=== PATIENT | female | born 1965 | race Caucasian/White ===

== ENCOUNTER 2017-04-03 12:00 | Emergency (ER) | payer MEDICAID, BC ==
[2017-04-03] MEDS ORDERED: 0.9 % SODIUM CHLORIDE 1,000 ML BAG IV ONE ×2 (13:08→14:44)
[2017-04-03] MEDS ORDERED: ONDANSETRON HCL IV 4 MG/2 ML VIAL IV ONE (13:08)
[2017-04-03] MEDS ORDERED: HYDROMORPHONE HCL 1 MG/ML CPJ IVP ONE ×2 (13:10→13:48)
--- NOTE | 2017-04-03 13:14 | Emergency Department Record ---
History of Present Illness - General Chief Complaint: Abdominal Pain Stated Complaint: ABDOMINAL PAIN Time Seen by Provider: 04/03/17 13:03 Source: Patient Mode of Arrival: Ambulatory Limitations: No limitations - History of Present Illness Initial Comments: The patient is here due to the acute onset of diffuse AP increasing mainly to the LLQ. The pain is also associated with nausea and dry heaves. The patient denies any diarrhea, fever, chills, CP, SOB, or ISAEL. She has had a similar episode of pain a year ago when she needed to be admitted to the hospital and her entire workup was neg including CT scans and an EGD. She states no dx was given and this is the first similar episode she has had since. The patient denies any hx of any abdominal surgeries. The patient has a long hx of similar issues and problems and has been to the hospital multiple times for it. Her workups have always been neg. MD Complaint: Abdominal pain Onset/Timin -: Hour(s) Location: LLQ Radiation: None Quality: Cramping, Stabbing Consistency: Constant Improves With: Nothing Worsens With: Nothing Associated Symptoms: Nausea, Vomiting - Related Data Home Medications Medication Instructions Recorded Confirmed Last Taken Chlordiazepoxide/Clidinium Br 1 each PO DAILY 08/03/15 04/03/17 04/02/17 [Librax Capsule] Fluoxetine HCl 20 mg PO DAILY 08/03/15 04/03/17 04/02/17 Pravastatin Sodium 40 mg PO QHS 08/03/15 04/03/17 04/02/17 Aspirin 81 mg PO QD tab.chew 08/28/15 04/03/17 04/02/17 Multivitamin [Daily Multiple 1 each PO DAILY tab 08/28/15 04/03/17 04/02/17 Vitamin] Previous Rx's Medication Instructions Recorded Omeprazole 20 mg PO DAILY #30 01/20/16 Ondansetron [Zofran Odt] 4 mg SL .Q4-6H PRN #12 tab.rapdis 04/03/17 Sucralfate [Carafate] 1 gm PO QID #28 tablet 04/03/17 Allergies Allergy/AdvReac Type Severity Reaction Status Date / Time amoxicillin trihydrate Allergy Intermediate NAUSEA AND Verified 04/03/17 13:03 [From Augmentin] VOMITING potassium clavulanate Allergy Intermediate NAUSEA AND Verified 04/03/17 13:03 [From Augmentin] VOMITING tetracycline Allergy Intermediate SWELLING Verified 04/03/17 13:03 (GENERAL) Travel Screening - Travel/Exposure Within Last 30 Days Have you traveled within the last 30 days?: No - Travel/Exposure Within Last Year Have you traveled outside the [place] in the last year?: No - Additonal Travel Details Have you been exposed to anyone with a communicable illness?: No - Travel Symptoms Symptom Screening: None Review of Systems Constitutional: Denies: Chills, Fever Eyes: Denies: Eye discharge ENT: Denies: Congestion Respiratory: Denies: Cough, Dyspnea Past Medical History - SOCIAL HISTORY Smoking Status: Current every day smoker Alcohol Use: None Drug Use: None - RESPIRATORY Hx Respiratory Disorders: No - CARDIOVASCULAR Hx Cardio Disorders: Yes Comment:: high cholesterol - NEURO Hx Neuro Disorders: No - GI Hx GI Disorders: Yes Hx Abdominal Pain: Yes - Hx Genitourinary Disorders: No - ENDOCRINE Hx Endocrine Disorders: No - MUSCULOSKELETAL Hx Musculoskeletal Disorders: No - PSYCH Hx Psych Problems: Yes Hx Depression: Yes - HEMATOLOGY/ONCOLOGY Hx Hematology/Oncology Disorders: No Family Medical History Any Significant Family History?: No Hx Cancer: Father, Brother/Sister Hx Diabetes: Mother Hx HTN: Mother Physical Exam - General General Appearance: Alert, Oriented x3, Cooperative, Mild distress (due to pain. ) - Head Head exam: Atraumatic, Normocephalic, Normal inspection - Eye Eye exam: Normal appearance, PERRL - Neck Neck exam: Normal inspection, Full ROM. negative: Tenderness - Respiratory Respiratory exam: Normal lung sounds bilaterally. negative: Respiratory distress - GI/Abdominal GI/Abdominal exam: Soft, Normal bowel sounds, Tenderness (There is diffuse tenderness to the LLQ.). negative: Distended, Rebound, Rigid - Extremities Extremities exam: Normal inspection, Full ROM, Normal capillary refill. negative: Tenderness - Neurological Neurological exam: Alert. negative: Motor sensory deficit Course Vital Signs 04/03/17 12:55 Temperature 97.8 F Pulse Rate 66 Respiratory 24 Rate Blood Pressure 121/80 Pulse Ox 96 - Reevaluation(s) Reevaluation #1: The patient is doing much better at this time. Her pain has resolved and she is resting comfortably. 04/03/17 14:27 Reevaluation #2: The patient is doing very well at this time. She denies any pain or discomfort and is resting comfortably. We are waiting on her CT. 04/03/17 16:02 Reevaluation #3: The patient is doing very well at this time. She is resting comfortably with no pain or discomfort. She states she feels 100% better. I did explain to her that her lab work and CT were basically WNL's and do not point to any specific cause for the pain. Due to her lactic acid level being elevated we will repeat the lactic acid lab work. 04/03/17 16:51 Reevaluation #4: The patient is doing very well now. Her Lactate level is now normal. She is feeling well and is ready for home. 04/03/17 17:57 Medical Decision Making - Data Complexity MDM Data: Labs Ordered and/or Reviewed, X-Ray Ordered and/or Reviewed - Lab Data Result diagrams: 04/03/17 13:41 04/03/17 13:41 - Radiology Data Radiology results: Report reviewed (Abd CT: Normal.) Disposition Disposition: Discharge Clinical Impression: Abdominal pain Qualifiers: Abdominal location: unspecified location Qualified Code(s): R10.9 - Unspecified abdominal pain Nausea & vomiting Qualifiers: Vomiting type: unspecified Vomiting Intractability: non-intractable Qualified Code(s): R11.2 - Nausea with vomiting, unspecified Disposition: Home, Self-Care Condition: (1) Good Instructions: Abdominal Pain (ED) Additional Instructions: Please continue your regular medicines and use the Carafate and Zofran as needed. Please see your PCP later this week for further evaluation. Return to the ER for any increased pain, nausea, or vomiting. Prescriptions: Ondansetron [Zofran Odt] 4 mg SL .Q4-6H PRN #12 tab.rapdis PRN Reason: Nausea Sucralfate [Carafate] 1 gm PO QID #28 tablet Forms: Patient Portal Access Time of Disposition: 17:59 Quality - Quality Measures Quality Measures: N/A - Blood Pressure Screening View Details: Yes Blood Pressure Classification: Pre-Hypertensive BP Reading Systolic Measurement: 119 Diastolic Measurement: 83 Screening for High Blood Pressure: < Pre-Hypertensive BP, F/U Documented > [ G8950] Pre-Hypertensive Follow-up Interventions: Follow-up with rescreen every year.
[2017-04-03 13:48] LABS: HEMATOCRIT 44.1 % (35.0-47.0); HEMOGLOBIN 15.1 gm/dl (11.6-16.0); MEAN CELL VOLUME 95.2 fl (81-97); MEAN CORPUSCULAR HEMOGLOBIN 32.6 pg (27-33); MEAN CORPUSCULAR HGB CONC 34.2 g/dl (32-36); MEAN PLATELET VOLUME 9.8 fl (7.4-10.4); PLATELET COUNT 224 K/uL (130-400); RED BLOOD COUNT 4.63 M/uL (3.80-5.40); RED CELL DISTRIBUTION WIDTH 12.7 % (11.5-14.5); WHITE BLOOD COUNT W/O DIFF 13.4 K/uL (4.2-12.2)
[2017-04-03] MEDS ORDERED: LORAZEPAM 2 MG/ML VIAL IV ONE (13:48)
[2017-04-03 14:00] LABS: ALBUMIN 4.8 gm/dL (3.5-5.0); ALKALINE PHOSPHATASE 97 U/L (38-126); ALT/SGPT 31 U/L (9-52); ANION GAP 18.4 (7-16); AST/SGOT 26 U/L (14-36); BLOOD UREA NITROGEN 18 mg/dL (7-17); CARBON DIOXIDE 18.6 mmol/L (22-30); CREATININE 0.9 mg/dL (0.52-1.04); EST GLOMERULAR FILTRATION RATE > 60 ml/min; GLUCOSE,RANDOM 180 mg/dL (70-110); LIPASE 47 U/L (23-300); TOTAL PROTEIN 8.6 gm/dL (6.3-8.2)
[2017-04-03 17:31] LABS: URINE APPEARANCE CLEAR; URINE BILIRUBIN NEGATIVE (NEGATIVE); URINE BLOOD NEGATIVE (NEGATIVE); URINE COLOR YELLOW; URINE GLUCOSE (UA) NEGATIVE (NEGATIVE); URINE KETONE 15 mg/dL (NEGATIVE); URINE LEUKOCYTE ESTERASE NEGATIVE (NEGATIVE); URINE NITRITE NEGATIVE (NEGATIVE); URINE PROTEIN TRACE (NEGATIVE); URINE UROBILINOGEN 0.2 E.U./dL (0.20 - 1.00)
[2017-04-03 17:49] LABS: URINE BACTERIA FEW; URINE HYALINE CAST 0-1 /lpf; URINE MUCUS LIGHT; URINE RBC 0 - 2 (NONE SEEN); URINE SQUAMOUS EPITHELIAL CELL 0 - 2 /hpf; URINE WBC 0 - 2 (0-2/hpf)
--- NOTE | 2017-04-04 10:32 | CT SCAN REPORT ---
EXAM: CT OF THE ABDOMEN AND PELVIS WITH CONTRAST HISTORY: ABDOMINAL PAIN. TECHNIQUE: Sequential axial images were obtained from the diaphragms through the ischiorectal fossa after intravenous and oral administration of 100 ml of Omnipaque 300 contrast material. FINDINGS: The visualized lung bases appear normal. The liver appears normal. The gallbladder appears normal. The pancreas and spleen appear normal. The adrenal glands and kidneys appear normal. 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 No obstructive uropathy is appreciated. The urinary bladder appears normal. The uterus and adnexal structures appear normal. The small bowel appears normal. The appendix is visualized and appears normal. The colon appears normal. There is mild degenerative change of the lumbar spine. IMPRESSION: 1. NO ACUTE ABDOMINAL OR PELVIC DISEASE PROCESS IS APPRECIATED. 2. HORSESHOE KIDNEY WHICH IS A CONGENITAL VARIANT. JOB NUMBER: [id number] MTDD
== END 2017-04-03 18:13 | disposition home or self-care (01) ==
LOC: ER 12:00
DX: R10.32 Left lower quadrant pain (principal); R11.2 Nausea with vomiting, unspecified
CPT/HCPCS: 99284 ×2; 96376; 96374; 96375; 83605; 83690; 80076; 80048; 81001; 85027; 74177; Q9967; J2405; J2060; J1170; J7030

== ENCOUNTER 2017-04-10 10:41 | Emergency (ER) | payer MEDICAID, BC ==
--- NOTE | 2017-04-10 11:12 | Emergency Department Record ---
History of Present Illness - General Chief Complaint: Abdominal Pain Stated Complaint: ABD PAIN Time Seen by Provider: 04/10/17 11:04 Mode of Arrival: Ambulatory - History of Present Illness Initial Comments: today at 7am nausea and left upper abdominal pain and she was seen here about one week ago and had test and they were negative and she says maybe she has a psych problem."psychosyomatic". Patient has not seen Dr. Mcneil since her visit in the ED last week. Also she drove from the hospital last week after given narcotic pain meds and she was told not to drive. This the same pain she had before and test were negative. Patient asked for pain meds and I informed her since she drove away no narcotics will be given. Complaint: Abdominal pain Onset/Timin -: Hour(s) Location: Diffuse Radiation: None Severity: Severe Quality: Aching, Sharp Consistency: Constant Improves With: Nothing Worsens With: Nothing Associated Symptoms: Vomiting - Related Data Patient : No Home Medications Medication Instructions Recorded Confirmed Last Taken Chlordiazepoxide/Clidinium Br 1 each PO DAILY 08/03/15 04/10/17 04/02/17 [Librax Capsule] Fluoxetine HCl 20 mg PO DAILY 08/03/15 04/10/17 04/02/17 Pravastatin Sodium 40 mg PO QHS 08/03/15 04/10/17 04/02/17 Aspirin 81 mg PO QD tab.chew 08/28/15 04/10/17 04/02/17 Multivitamin [Daily Multiple 1 each PO DAILY tab 08/28/15 04/10/17 04/02/17 Vitamin] Previous Rx's Medication Instructions Recorded Omeprazole 20 mg PO DAILY #30 01/20/16 Ondansetron [Zofran Odt] 4 mg SL .Q4-6H PRN #12 tab.rapdis 04/03/17 Sucralfate [Carafate] 1 gm PO QID #28 tablet 04/03/17 Dicyclomine HCl [Bentyl] 10 mg PO Q8H #30 cap 04/10/17 Allergies Allergy/AdvReac Type Severity Reaction Status Date / Time amoxicillin trihydrate Allergy Intermediate NAUSEA AND Verified 04/03/17 13:03 [From Augmentin] VOMITING potassium clavulanate Allergy Intermediate NAUSEA AND Verified 04/03/17 13:03 [From Augmentin] VOMITING tetracycline Allergy Intermediate SWELLING Verified 04/03/17 13:03 (GENERAL) Travel Screening - Travel/Exposure Within Last 30 Days Have you traveled within the last 30 days?: No Review of Systems Reviewed: No additional complaints except as noted below Constitutional: Reports: As per HPI. Denies: Chills, Fever, Malaise, Night sweats, Weakness, Weight change Eyes: Reports: As per HPI. Denies: Eye discharge, Eye pain, Photophobia, Vision change ENT: Reports: As per HPI. Denies: Congestion, Dental pain, Ear pain, Epistaxis , Hearing loss, Throat pain Respiratory: Reports: As per HPI. Denies: Cough, Dyspnea, Hemoptysis, Stridor, Wheezes Cardiovascular: Reports: As per HPI. Denies: Arrhythmia, Chest pain, Dyspnea on exertion, Edema, Murmurs, Orthopnea, Palpitations, Paroxysmal nocturnal dyspnea, Rheumatic Fever, Syncope Endocrine: Reports: As per HPI. Denies: Fatigue, Heat or cold intolerance, Polydipsia, Polyuria Gastrointestinal: Reports: As per HPI. Denies: Abdominal pain, Constipation, Diarrhea, Hematemesis, Hematochezia, Melena, Nausea, Vomiting Genitourinary: Reports: As per HPI. Denies: Abnormal menses, Discharge, Dyspareunia, Dysuria, Frequency, Hematuria, Incontinence, Retention, Urgency Musculoskeletal: Reports: As per HPI. Denies: Arthralgia, Back pain, Gout, Joint swelling, Myalgia, Neck pain Skin: Reports: As per HPI. Denies: Bruising, Change in color, Change in hair/ nails, Lesions, Pruritus, Rash Neurological: Reports: As per HPI. Denies: Abnormal gait, Confusion, Headache, Numbness, Paresthesias, Seizure, Tingling, Tremors, Vertigo, Weakness Psychiatric: Reports: As per HPI. Denies: Anxiety, Auditory hallucinations, Depression, Homicidal thoughts, Suicidal thoughts, Visual hallucinations Hematological/Lymphatic: Reports: As per HPI. Denies: Anemia, Blood Clots, Easy bleeding, Easy bruising, Swollen glands Past Medical History - SOCIAL HISTORY Smoking Status: Current every day smoker Alcohol Use: None Drug Use: None - RESPIRATORY Hx Respiratory Disorders: No - CARDIOVASCULAR Hx Cardio Disorders: Yes Comment:: high cholesterol - NEURO Hx Neuro Disorders: No - GI Hx GI Disorders: Yes Hx Abdominal Pain: Yes - Hx Genitourinary Disorders: No - ENDOCRINE Hx Endocrine Disorders: No - MUSCULOSKELETAL Hx Musculoskeletal Disorders: No - PSYCH Hx Psych Problems: Yes Hx Depression: Yes - HEMATOLOGY/ONCOLOGY Hx Hematology/Oncology Disorders: No Family Medical History Any Significant Family History?: Yes Hx Cancer: Father, Brother/Sister Hx Diabetes: Mother Hx HTN: Mother Physical Exam - General General Appearance: Alert, Oriented x3, Cooperative, Mild distress - Head Head exam: Normal inspection - Eye Eye exam: Normal appearance, PERRL Pupils: Normal accommodation - ENT ENT exam: Normal exam, Mucous membranes moist, Normal external ear exam, Normal orophraynx, TM's normal bilaterally Ear exam: Normal external inspection. negative: External canal tenderness Nasal Exam: Normal inspection. negative: Discharge, Sinus tenderness Mouth exam: Normal external inspection, Tongue normal Teeth exam: Normal inspection. negative: Dental caries Throat exam: Normal inspection. negative: Tonsillar erythema, Tonsillar exudate - Neck Neck exam: Normal inspection, Full ROM. negative: Tenderness - Respiratory Respiratory exam: Normal lung sounds bilaterally. negative: Respiratory distress - Cardiovascular Cardiovascular Exam: Regular rate, Normal rhythm, Normal heart sounds - GI/Abdominal GI/Abdominal exam: Soft, Normal bowel sounds, Tenderness (left upper quad pain soft ). negative: Guarding, Pulsatile mass, Rebound, Rigid - Rectal Rectal exam: Deferred - exam: Deferred - Extremities Extremities exam: Normal inspection, Full ROM, Normal capillary refill. negative: Tenderness - Back Back exam: Reports: Normal inspection, Full ROM. Denies: Muscle spasm, Rash noted, Tenderness - Neurological Neurological exam: Alert, Normal gait, Oriented X3, Reflexes normal - Psychiatric Psychiatric exam: Normal affect, Normal mood - Skin Skin exam: Dry, Intact, Normal color, Warm Course Vital Signs 04/10/17 11:05 Temperature 98.2 F Pulse Rate 54 L Respiratory 20 Rate Blood Pressure 138/94 Pulse Ox 100 Medical Decision Making - Lab Data Result diagrams: 04/10/17 11:35 Disposition Clinical Impression: Abdominal pain Qualifiers: Abdominal location: left upper quadrant Qualified Code(s): R10.12 - Left upper quadrant pain Gastritis Qualifiers: Gastritis type: unspecified gastritis Chronicity: acute Gastritis bleeding: without bleeding Qualified Code(s): K29.00 - Acute gastritis without bleeding Disposition: Home, Self-Care Condition: (1) Good Instructions: Gastritis (ED) Additional Instructions: follow up with family Dr. Mcneil take bentyl 20 mg three times a day for abdominal pain. continue omeprazole Prescriptions: Dicyclomine HCl [Bentyl] 10 mg PO Q8H #30 cap Forms: Patient Portal Access Time of Disposition: 13:16 Quality - Quality Measures Quality Measures: N/A - Blood Pressure Screening Blood Pressure Classification: Hypertensive Reading Systolic Measurement: 138 Diastolic Measurement: 94 Screening for High Blood Pressure: < First Hypertensive BP, F/U Documented > [ G8950] First Hypertensive Follow-up Interventions: Referral to alternative/primary care provider.
[2017-04-10] MEDS ORDERED: PROMETHAZINE HCL 25 MG/ML VIAL IM ONE (11:16)
[2017-04-10] MEDS ORDERED: DICYCLOMINE HCL 10 MG/ML AMPUL IM ONE (11:16)
[2017-04-10 11:44] LABS: HEMOGLOBIN 12.5 gm/dl (11.6-16.0); MEAN CELL VOLUME 97.9 fl (81-97); MEAN CORPUSCULAR HGB CONC 33.8 g/dl (32-36); MEAN PLATELET VOLUME 9.4 fl (7.4-10.4); PLATELET COUNT 258 K/uL (130-400); RED BLOOD COUNT 3.78 M/uL (3.80-5.40); RED CELL DISTRIBUTION WIDTH 12.7 % (11.5-14.5); WHITE BLOOD COUNT W/O DIFF 9.3 K/uL (4.2-12.2)
[2017-04-10 11:58] LABS: PLATELET ESTIMATE NORMAL (NORMAL)
== END 2017-04-10 13:27 | disposition home or self-care (01) ==
LOC: ER 10:41
DX: R10.12 Left upper quadrant pain (principal); R11.2 Nausea with vomiting, unspecified
CPT/HCPCS: 85027; 96372; 99283; J2550

== ENCOUNTER 2017-04-19 10:00 | Emergency (ER) | payer MEDICAID, BC ==
--- NOTE | 2017-04-19 10:48 | Emergency Department Record ---
History of Present Illness - General Chief Complaint: Abdominal Pain Stated Complaint: ABD PAIN Time Seen by Provider: 04/19/17 10:38 Source: Patient, RN notes reviewed Mode of Arrival: Ambulatory - History of Present Illness Initial Comments: Patient seen here before for the same thing and she is scheduled to see Dr. Gallagher tomorrow. Seen by Dr. Mcneil yesterday and given ultram and compazine. patient is having riging sounds.ght upper quad pain same as before and her states she has better days if he gives her his vicodin which I advised him that is a problem that could hurt her and advised he stop doing that. Patient crying in pain and forcing gags. Patient ate Pizza last night a small piece. I also informed her since she drove away after narcotics two ED visits ago I would not give her any narcotics today. Patient denies dysuria MD Complaint: Abdominal pain Onset/Timin -: Week(s) Location: Diffuse Severity: Moderate Quality: Aching, Sharp Consistency: Constant Improves With: Nothing Worsens With: Nothing Associated Symptoms: Vomiting - Related Data Patient : No Home Medications Medication Instructions Recorded Confirmed Last Taken Chlordiazepoxide/Clidinium Br 1 each PO DAILY 08/03/15 04/19/17 04/02/17 [Librax Capsule] Fluoxetine HCl 20 mg PO DAILY 08/03/15 04/19/17 04/02/17 Pravastatin Sodium 40 mg PO QHS 08/03/15 04/19/17 04/02/17 Aspirin 81 mg PO QD tab.chew 08/28/15 04/19/17 04/02/17 Multivitamin [Daily Multiple 1 each PO DAILY tab 08/28/15 04/19/17 04/02/17 Vitamin] Prochlorperazine Maleate 10 mg PO DAILY 04/19/17 04/19/17 Unknown [Compazine] Tramadol HCl [Tramadol HCl] 50 mg PO DAILY 04/19/17 04/19/17 Unknown Previous Rx's Medication Instructions Recorded Omeprazole 20 mg PO DAILY #30 dasia. 01/20/16 Sucralfate [Carafate] 1 gm PO QID #28 tablet 04/03/17 Dicyclomine HCl [Bentyl] 10 mg PO Q8H #30 cap 04/10/17 Dicyclomine HCl [Bentyl] 20 mg PO Q8H #30 cap 04/19/17 Hydrocodone/Acetaminophen [[place] 1 each PO Q6HR #14 tablet 04/19/17 5-325 Tablet] Allergies Allergy/AdvReac Type Severity Reaction Status Date / Time amoxicillin trihydrate Allergy Intermediate NAUSEA AND Verified 04/03/17 13:03 [From Augmentin] VOMITING potassium clavulanate Allergy Intermediate NAUSEA AND Verified 04/03/17 13:03 [From Augmentin] VOMITING tetracycline Allergy Intermediate SWELLING Verified 04/03/17 13:03 (GENERAL) Travel Screening - Travel/Exposure Within Last 30 Days Have you traveled within the last 30 days?: No Review of Systems Reviewed: No additional complaints except as noted below Constitutional: Reports: As per HPI. Denies: Chills, Fever, Malaise, Night sweats, Weakness, Weight change Eyes: Reports: As per HPI. Denies: Eye discharge, Eye pain, Photophobia, Vision change ENT: Reports: As per HPI. Denies: Congestion, Dental pain, Ear pain, Epistaxis , Hearing loss, Throat pain Respiratory: Reports: As per HPI. Denies: Cough, Dyspnea, Hemoptysis, Stridor, Wheezes Cardiovascular: Reports: As per HPI. Denies: Arrhythmia, Chest pain, Dyspnea on exertion, Edema, Murmurs, Orthopnea, Palpitations, Paroxysmal nocturnal dyspnea, Rheumatic Fever, Syncope Endocrine: Reports: As per HPI. Denies: Fatigue, Heat or cold intolerance, Polydipsia, Polyuria Gastrointestinal: Reports: As per HPI, Abdominal pain, Nausea, Vomiting. Denies : Constipation, Diarrhea, Hematemesis, Hematochezia, Melena Genitourinary: Reports: As per HPI. Denies: Abnormal menses, Discharge, Dyspareunia, Dysuria, Frequency, Hematuria, Incontinence, Retention, Urgency Musculoskeletal: Reports: As per HPI. Denies: Arthralgia, Back pain, Gout, Joint swelling, Myalgia, Neck pain Skin: Reports: As per HPI. Denies: Bruising, Change in color, Change in hair/ nails, Lesions, Pruritus, Rash Neurological: Reports: As per HPI. Denies: Abnormal gait, Confusion, Headache, Numbness, Paresthesias, Seizure, Tingling, Tremors, Vertigo, Weakness Psychiatric: Reports: As per HPI. Denies: Anxiety, Auditory hallucinations, Depression, Homicidal thoughts, Suicidal thoughts, Visual hallucinations Hematological/Lymphatic: Reports: As per HPI. Denies: Anemia, Blood Clots, Easy bleeding, Easy bruising, Swollen glands Past Medical History - SOCIAL HISTORY Smoking Status: Current every day smoker Alcohol Use: None Drug Use: None - RESPIRATORY Hx Respiratory Disorders: No - CARDIOVASCULAR Hx Cardio Disorders: Yes Comment:: high cholesterol - NEURO Hx Neuro Disorders: Yes Hx TIA: Yes - GI Hx GI Disorders: Yes Hx Abdominal Pain: Yes Hx Reflux: Yes Hx Nausea/Vomiting: Yes - Hx Genitourinary Disorders: No - ENDOCRINE Hx Endocrine Disorders: No - MUSCULOSKELETAL Hx Musculoskeletal Disorders: Yes Hx Gout: Yes - PSYCH Hx Psych Problems: Yes Hx Depression: Yes - HEMATOLOGY/ONCOLOGY Hx Hematology/Oncology Disorders: No Family Medical History Any Significant Family History?: Yes Hx Cancer: Father, Brother/Sister Hx Diabetes: Mother Hx HTN: Mother Physical Exam - General General Appearance: Alert, Oriented x3, Cooperative, No acute distress - Head Head exam: Normal inspection - Eye Eye exam: Normal appearance, PERRL Pupils: Normal accommodation - ENT ENT exam: Normal exam, Mucous membranes moist, Normal external ear exam, Normal orophraynx, TM's normal bilaterally Ear exam: Normal external inspection. negative: External canal tenderness Nasal Exam: Normal inspection. negative: Discharge, Sinus tenderness Mouth exam: Normal external inspection, Tongue normal Teeth exam: Normal inspection. negative: Dental caries Throat exam: Normal inspection. negative: Tonsillar erythema, Tonsillar exudate - Neck Neck exam: Normal inspection, Full ROM. negative: Tenderness - Respiratory Respiratory exam: Normal lung sounds bilaterally. negative: Respiratory distress - Cardiovascular Cardiovascular Exam: Regular rate, Normal rhythm, Normal heart sounds - GI/Abdominal GI/Abdominal exam: Soft, Diminished bowel sounds, Tenderness (right upper quad pain). negative: Distended, Guarding, Mass, Rebound, Rigid - Rectal Rectal exam: Deferred - exam: Deferred - Extremities Extremities exam: Normal inspection, Full ROM, Normal capillary refill. negative: Tenderness - Back Back exam: Reports: Normal inspection, Full ROM. Denies: Muscle spasm, Rash noted, Tenderness - Neurological Neurological exam: Alert, Normal gait, Oriented X3, Reflexes normal - Psychiatric Psychiatric exam: Normal affect, Normal mood - Skin Skin exam: Dry, Intact, Normal color, Warm Course Vital Signs 04/19/17 10:09 Temperature 97.8 F Pulse Rate 65 Respiratory 24 Rate Blood Pressure 153/98 Pulse Ox 97 - Reevaluation(s) Reevaluation #1: patient some better but still having waves of pain and will give her norco to take at home. will not give her narcotic here because of her drive away two ED visits ago 04/19/17 12:55 Medical Decision Making - Data Complexity MDM Data: Labs Ordered and/or Reviewed (wbc 8,200, K3.o), X-Ray Ordered and/or Reviewed (horseshoe kidney essentially negative CT same as before) - Lab Data Result diagrams: 04/19/17 11:05 04/19/17 11:05 Disposition Clinical Impression: Abdominal pain Qualifiers: Abdominal location: right upper quadrant Qualified Code(s): R10.11 - Right upper quadrant pain Nausea & vomiting Qualifiers: Vomiting type: unspecified Vomiting Intractability: non-intractable Qualified Code(s): R11.2 - Nausea with vomiting, unspecified Disposition: Home, Self-Care Instructions: Gastritis (ED), Abdominal Pain (ED) Additional Instructions: follow up with GI as scheduled tomorrow take bentyl 20 mg three times a day use ultram and comapzine as prescribed by Ewa Sierra take norco one every 6 hours for severe pain. follow up with Dr. Mcneil in 5 days Prescriptions: Hydrocodone/Acetaminophen [[place] 5-325 Tablet] 1 each PO Q6HR #14 tablet Dicyclomine HCl [Bentyl] 20 mg PO Q8H #30 cap Forms: Patient Portal Access Time of Disposition: 12:43 Quality - Quality Measures Quality Measures: N/A - Blood Pressure Screening Blood Pressure Classification: Hypertensive Reading Systolic Measurement: 153 Diastolic Measurement: 98 Screening for High Blood Pressure: < First Hypertensive BP, F/U Documented > [ G8950] First Hypertensive Follow-up Interventions: Referral to alternative/primary care provider.
[2017-04-19] MEDS ORDERED: 0.9 % SODIUM CHLORIDE 1,000 ML BAG IV ONE (10:52)
[2017-04-19] MEDS ORDERED: PROMETHAZINE HCL 25 MG/ML VIAL IM ONE (10:52)
[2017-04-19] MEDS ORDERED: 0.9 % SODIUM CHLORIDE 1000ML 1,000 ML IV PRN (10:52)
[2017-04-19] MEDS ORDERED: DICYCLOMINE HCL 10 MG/ML AMPUL IM ONE (10:52)
[2017-04-19] MEDS ORDERED: LORAZEPAM 2 MG/ML VIAL IV ONE (10:55)
[2017-04-19 11:11] LABS: HEMATOCRIT 38.9 % (35.0-47.0); MEAN CELL VOLUME 97.3 fl (81-97); MEAN CORPUSCULAR HEMOGLOBIN 32.5 pg (27-33); MEAN CORPUSCULAR HGB CONC 33.4 g/dl (32-36); MEAN PLATELET VOLUME 8.8 fl (7.4-10.4); PLATELET COUNT 301 K/uL (130-400); WHITE BLOOD COUNT W/O DIFF 8.2 K/uL (4.2-12.2)
[2017-04-19 11:24] LABS: ALB/GLOB RATIO 1.5 (1.1-1.8); ALBUMIN 4.4 gm/dL (3.5-5.0); ALKALINE PHOSPHATASE 78 U/L (38-126); ALT/SGPT 35 U/L (9-52); ANION GAP 11.8 (7-16); AST/SGOT 22 U/L (14-36); BILIRUBIN,TOTAL 0.81 mg/dL (0.2-1.3); BLOOD UREA NITROGEN 8 mg/dL (7-17); CARBON DIOXIDE 26.2 mmol/L (22-30); CREATININE 0.6 mg/dL (0.52-1.04); EST GLOMERULAR FILTRATION RATE > 60 ml/min; GLUCOSE,RANDOM 133 mg/dL (70-110); LIPASE 47 U/L (23-300); TOTAL PROTEIN 7.3 gm/dL (6.3-8.2)
[2017-04-19] MEDS ORDERED: POTASSIUM CHLORIDE 20 MEQ TABLET PO ONE (11:26)
[2017-04-19] MEDS ORDERED: HYDROMORPHONE HCL 1MG/ML **SYRINGE IVP ONE (13:15)
--- NOTE | 2017-04-19 13:16 | Emergency Department Record ---
History of Present Illness - General Chief Complaint: Abdominal Pain Stated Complaint: ABD PAIN Time Seen by Provider: 04/19/17 10:38 Source: Patient, RN notes reviewed Mode of Arrival: Ambulatory - History of Present Illness MD Complaint: Abdominal pain Onset/Timin -: Week(s) Location: Diffuse Severity: Moderate Quality: Aching, Sharp Consistency: Constant Improves With: Nothing Worsens With: Nothing Associated Symptoms: Vomiting - Related Data Patient : No Home Medications Medication Instructions Recorded Confirmed Last Taken Chlordiazepoxide/Clidinium Br 1 each PO DAILY 08/03/15 04/19/17 04/02/17 [Librax Capsule] Fluoxetine HCl 20 mg PO DAILY 08/03/15 04/19/17 04/02/17 Pravastatin Sodium 40 mg PO QHS 08/03/15 04/19/17 04/02/17 Aspirin 81 mg PO QD tab.chew 08/28/15 04/19/17 04/02/17 Multivitamin [Daily Multiple 1 each PO DAILY tab 08/28/15 04/19/17 04/02/17 Vitamin] Prochlorperazine Maleate 10 mg PO DAILY 04/19/17 04/19/17 Unknown [Compazine] Tramadol HCl [Tramadol HCl] 50 mg PO DAILY 04/19/17 04/19/17 Unknown Previous Rx's Medication Instructions Recorded Omeprazole 20 mg PO DAILY #30 cap. 01/20/16 Sucralfate [Carafate] 1 gm PO QID #28 tablet 04/03/17 Dicyclomine HCl [Bentyl] 10 mg PO Q8H #30 cap 04/10/17 Dicyclomine HCl [Bentyl] 20 mg PO Q8H #30 cap 04/19/17 Hydrocodone/Acetaminophen [[place] 1 each PO Q6HR #14 tablet 04/19/17 5-325 Tablet] Prochlorperazine [Compazine] 25 mg RC Q8HR PRN #10 supp.rect 04/19/17 Allergies Allergy/AdvReac Type Severity Reaction Status Date / Time amoxicillin trihydrate Allergy Intermediate NAUSEA AND Verified 04/03/17 13:03 [From Augmentin] VOMITING potassium clavulanate Allergy Intermediate NAUSEA AND Verified 04/03/17 13:03 [From Augmentin] VOMITING tetracycline Allergy Intermediate SWELLING Verified 04/03/17 13:03 (GENERAL) Travel Screening - Travel/Exposure Within Last 30 Days Have you traveled within the last 30 days?: No Review of Systems Constitutional: Reports: As per HPI. Denies: Chills, Fever, Malaise, Night sweats, Weakness, Weight change Eyes: Reports: As per HPI. Denies: Eye discharge, Eye pain, Photophobia, Vision change ENT: Reports: As per HPI. Denies: Congestion, Dental pain, Ear pain, Epistaxis , Hearing loss, Throat pain Respiratory: Reports: As per HPI. Denies: Cough, Dyspnea, Hemoptysis, Stridor, Wheezes Cardiovascular: Reports: As per HPI. Denies: Arrhythmia, Chest pain, Dyspnea on exertion, Edema, Murmurs, Orthopnea, Palpitations, Paroxysmal nocturnal dyspnea, Rheumatic Fever, Syncope Endocrine: Reports: As per HPI. Denies: Fatigue, Heat or cold intolerance, Polydipsia, Polyuria Gastrointestinal: Reports: As per HPI, Abdominal pain, Nausea, Vomiting. Denies : Constipation, Diarrhea, Hematemesis, Hematochezia, Melena Genitourinary: Reports: As per HPI. Denies: Abnormal menses, Discharge, Dyspareunia, Dysuria, Frequency, Hematuria, Incontinence, Retention, Urgency Musculoskeletal: Reports: As per HPI. Denies: Arthralgia, Back pain, Gout, Joint swelling, Myalgia, Neck pain Skin: Reports: As per HPI. Denies: Bruising, Change in color, Change in hair/ nails, Lesions, Pruritus, Rash Neurological: Reports: As per HPI. Denies: Abnormal gait, Confusion, Headache, Numbness, Paresthesias, Seizure, Tingling, Tremors, Vertigo, Weakness Psychiatric: Reports: As per HPI. Denies: Anxiety, Auditory hallucinations, Depression, Homicidal thoughts, Suicidal thoughts, Visual hallucinations Hematological/Lymphatic: Reports: As per HPI. Denies: Anemia, Blood Clots, Easy bleeding, Easy bruising, Swollen glands Past Medical History - SOCIAL HISTORY Smoking Status: Current every day smoker Alcohol Use: None Drug Use: None - RESPIRATORY Hx Respiratory Disorders: No - CARDIOVASCULAR Hx Cardio Disorders: Yes Comment:: high cholesterol - NEURO Hx Neuro Disorders: Yes Hx TIA: Yes - GI Hx GI Disorders: Yes Hx Abdominal Pain: Yes Hx Reflux: Yes Hx Nausea/Vomiting: Yes - Hx Genitourinary Disorders: No - ENDOCRINE Hx Endocrine Disorders: No - MUSCULOSKELETAL Hx Musculoskeletal Disorders: Yes Hx Gout: Yes - PSYCH Hx Psych Problems: Yes Hx Depression: Yes - HEMATOLOGY/ONCOLOGY Hx Hematology/Oncology Disorders: No Family Medical History Any Significant Family History?: Yes Hx Cancer: Father, Brother/Sister Hx Diabetes: Mother Hx HTN: Mother Course Vital Signs 04/19/17 10:09 Temperature 97.8 F Pulse Rate 65 Respiratory 24 Rate Blood Pressure 153/98 Pulse Ox 97 - Reevaluation(s) Reevaluation #1: patient having move waves of vomiting and abdominal pain and refuses to take her home. 04/19/17 13:14 Reevaluation #2: Discussed case with Dr. Mcneil and he suggested to give the dilaudid to see that happens especially since present to drive her home if necessary. If that doesn't settle her down will admit for observation and GI consult and colonoscopy tomorrow. 04/19/17 14:01 Reevaluation #3: patient is feeling better and now feels like she can go home a do her colonoscopy prep today. 04/19/17 14:47 Medical Decision Making - Lab Data Result diagrams: 04/19/17 11:05 04/19/17 11:05 Lab Results 04/19/17 04/19/17 Range/Units 11:05 11:05 WBC 8.2 (4.2-12.2) K/uL RBC 4.00 (3.80-5.40) M/uL Hgb 13.0 (11.6-16.0) gm/dl Hct 38.9 (35.0-47.0) % MCV 97.3 H (81-97) fl MCH 32.5 (27-33) pg MCHC 33.4 (32-36) g/dl RDW 13.0 (11.5-14.5) % Plt Count 301 (130-400) K/uL MPV 8.8 (7.4-10.4) fl Neutrophils % 82.0 H (47-80) % Eosinophils % Not Reportable Basophils % Not Reportable Lymphocytes 12.0 L (16-45) % Monocytes 6.0 (0-9) % Sodium 143 (136-145) mmol/L Potassium 3.0 L (3.5-5.1) mmol/L Chloride 105 (98-107) mmol/L Carbon Dioxide 26.2 (22-30) mmol/L Anion Gap 11.8 (7-16) BUN 8 (7-17) mg/dL Creatinine 0.6 (0.52-1.04) mg/dL Estimated GFR > 60 ml/min Random Glucose 133 H (70-110) mg/dL Calcium 8.9 (8.5-10.1) mg/dL Total Bilirubin 0.81 (0.2-1.3) mg/dL Direct Bilirubin 0.0 (0-0.3) mg/dL AST 22 (14-36) U/L ALT 35 (9-52) U/L Alkaline Phosphatase 78 (38-126) U/L Total Protein 7.3 (6.3-8.2) gm/dL Albumin 4.4 (3.5-5.0) gm/dL Globulin 2.9 (1.4-4.8) gm/dL Albumin/Globulin Ratio 1.5 (1.1-1.8) Lipase 47 (23-300) U/L Disposition Clinical Impression: Hypokalemia Abdominal pain Qualifiers: Abdominal location: right upper quadrant Qualified Code(s): R10.11 - Right upper quadrant pain Nausea & vomiting Qualifiers: Vomiting type: unspecified Vomiting Intractability: non-intractable Qualified Code(s): R11.2 - Nausea with vomiting, unspecified Disposition: Home, Self-Care Instructions: Gastritis (ED), Abdominal Pain (ED) Additional Instructions: follow up with GI as scheduled tomorrow take bentyl 20 mg three times a day use ultram and comapzine as prescribed by Ewa Sierra take norco one every 6 hours for severe pain. follow up with Dr. Mcneil in 5 days take compazine sup one every 8 hours Prescriptions: Hydrocodone/Acetaminophen [[place] 5-325 Tablet] 1 each PO Q6HR #14 tablet Prochlorperazine [Compazine] 25 mg RC Q8HR PRN #10 supp.rect PRN Reason: Gi Upset Dicyclomine HCl [Bentyl] 20 mg PO Q8H #30 cap Forms: Patient Portal Access Time of Disposition: 14:53 Quality - Quality Measures Quality Measures: N/A - Blood Pressure Screening Blood Pressure Classification: Hypertensive Reading Systolic Measurement: 153 Diastolic Measurement: 98 Screening for High Blood Pressure: < First Hypertensive BP, F/U Documented > [ G8950] First Hypertensive Follow-up Interventions: Referral to alternative/primary care provider.
[2017-04-19] MEDS ORDERED: 0.9 % SODIUM CHLORIDE 1000ML 1,000 ML IV ONE (13:31)
--- NOTE | 2017-04-20 09:40 | CT SCAN REPORT ---
EXAM: EMERGENCY CT OF THE ABDOMEN AND PELVIS HISTORY: RIGHT UPPER QUADRANT PAIN, GENERALIZED ABDOMINAL PAIN WITH NAUSEA AND VOMITING FOR TEN YEARS. TECHNIQUE: Axial CT scan of the abdomen and pelvis was performed without oral or IV contrast. Comparison: CT abdomen and pelvis dated 01/20/16. FINDINGS: No calcified gallstones seen within the gallbladder. A horseshoe kidney is again noted. No intrarenal calculi or hydronephrosis identified on either side. No definite ureteral calculus seen on either side and no bladder calculus evident. Evaluation of the bowel and viscera are very limited without oral or IV contrast. Given this limitation, no definite hepatic, splenic, adrenal, pancreatic, or renal mass identified. No appendicitis evident. No basilar infiltrate seen in the lungs. No free intraperitoneal air or free intraperitoneal fluid evident. Tiny periumbilical anterior abdominal wall hernia containing adipose tissue, but no bowel. Some mild spurring is seen in the spine particularly at the L4-L5 interspace. IMPRESSION: 1. HORSESHOE KIDNEY BEFORE. NO URINARY TRACT CALCULI OR HYDRONEPHROSIS EVIDENT. 2. VERY SMALL PERIUMBILICAL ANTERIOR ABDOMINAL WALL HERNIA WITH NO BOWEL PRESENT. 3. MILD SPURRING IN THE SPINE. JOB NUMBER: [id number] [facility]
== END 2017-04-19 15:08 | disposition home or self-care (01) ==
LOC: ER 10:00
DX: R10.11 Right upper quadrant pain (principal); E87.6 Hypokalemia; R11.2 Nausea with vomiting, unspecified
CPT/HCPCS: 99284 ×2; 96374; 96372; 96375; 83690; 80076; 80053; 85027; 74176; J2060; J1170; J2550; J7030

== ENCOUNTER 2017-04-20 12:44 | Day surgery (SDC) | payer MEDICAID, BC ==
[~2017-04-20 12:44] MED LIST: KETOROLAC 30 MG/ML VIAL IVP ONE; LIDOCAINE 2% MDV (20MG/ML) 20ML VIAL IV ONE; MIDAZOLAM HCL 2MG/2ML VIAL IV ONE; ONDANSETRON HCL IV 4 MG/2 ML VIAL IVP ONE; PROPOFOL 10 MG/ML VIAL IV ONE
--- NOTE | 2017-04-21 14:20 | Operative Note ---
DATE OF SURGERY: 04/20/2017 OPERATION: COLONOSCOPY. PREOPERATIVE DIAGNOSIS: Intractable recurrent abdominal pain. POSTOPERATIVE DIAGNOSIS: Normal exam. PREPARATION QUALITY: Excellent. ESTIMATED BLOOD LOSS: None. FINDINGS: Normal exam. COMPLICATIONS: None apparent. PROCEDURE: After informed consent was obtained from the patient, she was placed in the left lateral decubitus position in the endoscopy suite, sedated and monitored by the department of anesthesia. Digital rectal exam was unremarkable. A well-lubricated [id number] colonoscope was inserted into the rectum and advanced to the cecum. Preparation quality was excellent. The cecum, ileocecal valve, appendiceal orifice, terminal ileum, ascending colon, transverse colon, descending colon, sigmoid colon, and rectum were carefully inspected. No polyps, mass lesions, or inflammation was seen. Forward and J-turn views of the rectum and anorectum were unremarkable. The endoscope was straightened, the rectal ampulla deflated, and the endoscope was removed. RECOMMENDATIONS: At this point the patient seems to have migratory abdominal pain. This seems to coincide with the recent increased stress in her life related to the living arrangements whereby her son has recently moved back in. He apparently has some issues that are causing family stress. In any event, her recent CT and laboratory studies were essentially unremarkable. I will check C1 esterase inhibitor level, SINTIA, sedimentation rate, CRP, urine porphyria level, and a fasting cortisol level. As always, thank you for allowing me to participate in the healthcare of your patients. CC: Tomasz GUTIERREZ
== END 2017-04-20 15:10 | disposition home or self-care (01) ==
LOC: HOP 12:44
PROVIDERS: ATTEND Internal Medicine Gastroenterology
DX: Z12.11 Encounter for screening for malignant neoplasm of colon (principal); E78.00 Pure hypercholesterolemia, unspecified
CPT/HCPCS: 00810; G0121; J1885; J2405

== ENCOUNTER 2017-04-20 15:16 | Observation (INO) | payer MEDICAID, BC ==
--- NOTE | 2017-04-20 15:30 | Emergency Department Record ---
History of Present Illness - General Chief Complaint: Abdominal Pain Stated Complaint: ABD PAIN Time Seen by Provider: 04/20/17 15:18 Source: Patient Mode of Arrival: from surgery Limitations: No limitations - History of Present Illness Initial Comments: The patient is here from the GI clinic where she had a colonoscopy due to worsening AP. The pain started this AM prior to the colonoscopy. She has had a hx of spasmodic AP over the last 2 weeks requiring multiple ED visits and receiving Dilaudid and Ativan usually. The patient was asking for Dilaudid in the GI clinic but since they do not provide that medicine she requested to come over to the ER for pain relief. The patient also had a neg abdominal CT yesterday while in the ED. MD Complaint: Abdominal pain Onset/Timin -: Days(s) Location: Diffuse Radiation: None Migration to: No migration Severity: Severe Quality: Aching Consistency: Constant Improves With: Nothing Worsens With: Nothing Associated Symptoms: Nausea - Related Data Patient : No Home Medications Medication Instructions Recorded Confirmed Last Taken Chlordiazepoxide/Clidinium Br 1 each PO DAILY 08/03/15 04/20/17 04/02/17 [Librax Capsule] Fluoxetine HCl 20 mg PO DAILY 08/03/15 04/20/17 04/02/17 Pravastatin Sodium 40 mg PO QHS 08/03/15 04/20/17 04/02/17 Aspirin 81 mg PO QD tab.chew 08/28/15 04/20/17 04/02/17 Multivitamin [Daily Multiple 1 each PO DAILY tab 08/28/15 04/20/17 04/02/17 Vitamin] Prochlorperazine Maleate 10 mg PO DAILY 04/19/17 04/20/17 Unknown [Compazine] Tramadol HCl [Tramadol HCl] 50 mg PO DAILY 04/19/17 04/20/17 Unknown Previous Rx's Medication Instructions Recorded Omeprazole 20 mg PO DAILY #30 dasia. 01/20/16 Sucralfate [Carafate] 1 gm PO QID #28 tablet 04/03/17 Dicyclomine HCl [Bentyl] 10 mg PO Q8H #30 cap 04/10/17 Dicyclomine HCl [Bentyl] 20 mg PO Q8H #30 cap 04/19/17 Hydrocodone/Acetaminophen [[place] 1 each PO Q6HR #14 tablet 04/19/17 5-325 Tablet] Prochlorperazine [Compazine] 25 mg RC Q8HR PRN #10 supp.rect 04/19/17 Allergies Allergy/AdvReac Type Severity Reaction Status Date / Time amoxicillin trihydrate Allergy Intermediate NAUSEA AND Verified 04/20/17 15:22 [From Augmentin] VOMITING potassium clavulanate Allergy Intermediate NAUSEA AND Verified 04/20/17 15:22 [From Augmentin] VOMITING tetracycline Allergy Intermediate SWELLING Verified 04/20/17 15:22 (GENERAL) Travel Screening - Travel/Exposure Within Last 30 Days Have you traveled within the last 30 days?: No Review of Systems Constitutional: Denies: Chills, Fever Eyes: Denies: Eye discharge ENT: Denies: Congestion, Throat pain Respiratory: Denies: Dyspnea Cardiovascular: Denies: Chest pain Endocrine: Denies: Fatigue Gastrointestinal: Reports: Abdominal pain, Nausea, Vomiting. Denies: Diarrhea Genitourinary: Denies: Dysuria Musculoskeletal: Denies: Back pain Skin: Denies: Bruising Past Medical History - SOCIAL HISTORY Smoking Status: Current every day smoker Alcohol Use: None Drug Use: None - RESPIRATORY Hx Respiratory Disorders: No - CARDIOVASCULAR Hx Cardio Disorders: Yes Comment:: high cholesterol - NEURO Hx Neuro Disorders: Yes Hx TIA: Yes - GI Hx GI Disorders: Yes Hx Abdominal Pain: Yes Hx Reflux: Yes Hx Nausea/Vomiting: Yes - Hx Genitourinary Disorders: No - ENDOCRINE Hx Endocrine Disorders: No - MUSCULOSKELETAL Hx Musculoskeletal Disorders: Yes Hx Gout: Yes - PSYCH Hx Psych Problems: Yes Hx Depression: Yes - HEMATOLOGY/ONCOLOGY Hx Hematology/Oncology Disorders: No Family Medical History Any Significant Family History?: Yes Hx Cancer: Father, Brother/Sister Hx Diabetes: Mother Hx HTN: Mother Physical Exam - General General Appearance: Alert, Oriented x3, Cooperative, Mild distress - Head Head exam: Atraumatic, Normocephalic - Eye Eye exam: Normal appearance, PERRL - Neck Neck exam: Normal inspection, Full ROM. negative: Tenderness - Respiratory Respiratory exam: Normal lung sounds bilaterally. negative: Respiratory distress - Cardiovascular Cardiovascular Exam: Regular rate, Normal rhythm, Normal heart sounds - GI/Abdominal GI/Abdominal exam: Soft, Normal bowel sounds. negative: Distended, Guarding, Rebound, Rigid, Tenderness (The abdomen is very soft and nontender in all 4 quads.) - Extremities Extremities exam: Normal inspection, Full ROM, Normal capillary refill. negative: Tenderness - Neurological Neurological exam: Alert, Normal gait. negative: Abnormal gait, Motor sensory deficit - Psychiatric Psychiatric exam: Anxious. negative: Flat affect Course Vital Signs 04/20/17 15:18 Temperature 99.4 F Pulse Rate 65 Respiratory 20 Rate Blood Pressure 153/86 Pulse Ox 97 - Reevaluation(s) Reevaluation #1: The patient is doing much better at this time. Her pain is much improved. She is now able to drink with no vomiting. The patient and family are reluctant to go home due to having to come to the ER 4 times in the last 2 weeks for this. I did discuss the case with DR. Oconnor and he accepts the patient for an OBS admission. 04/20/17 16:21 04/20/17 16:26 Medical Decision Making - Data Complexity MDM Data: Labs Ordered and/or Reviewed - Lab Data Result diagrams: 04/20/17 15:47 04/20/17 15:47 Disposition Disposition: Admit Clinical Impression: Intractable abdominal pain Nausea & vomiting Qualifiers: Vomiting type: unspecified Vomiting Intractability: non-intractable Qualified Code(s): R11.2 - Nausea with vomiting, unspecified Disposition: Still a Patient at [facility] Decision to Admit: Admit from ER Decision to Admit Date: 04/20/17 Decision to Admit Time: 16:22 Accepting Physician: Anastasia Time Discussed w/Accepting Physician: 16:22 Condition: (2) Stable Time of Disposition: 16:22 Quality - Quality Measures Quality Measures: N/A - Blood Pressure Screening View Details: Yes Blood Pressure Classification: Pre-Hypertensive BP Reading Systolic Measurement: 153 Diastolic Measurement: 86 Screening for High Blood Pressure: < Pre-Hypertensive BP, F/U Documented > [ G8950] Pre-Hypertensive Follow-up Interventions: Follow-up with rescreen every year.
[2017-04-20] MEDS ORDERED: HYDROMORPHONE HCL 1MG/ML **SYRINGE IVP ONE (15:36)
[2017-04-20] MEDS ORDERED: ONDANSETRON HCL IV 4 MG/2 ML VIAL IVP ONE (15:36)
[2017-04-20] MEDS ORDERED: LORAZEPAM 2 MG/ML VIAL IV ONE (15:36)
[2017-04-20 15:53] LABS: BASO % 0.5 % (0-6); EOS % 0.3 % (0-6); GRAN % 70.7 % (47-80); HEMATOCRIT 39.4 % (35.0-47.0); HEMOGLOBIN 12.9 gm/dl (11.6-16.0); LYMPH % 21.7 % (16-45); MEAN CELL VOLUME 98.3 fl (81-97); MEAN CORPUSCULAR HEMOGLOBIN 32.2 pg (27-33); MEAN CORPUSCULAR HGB CONC 32.7 g/dl (32-36); MEAN PLATELET VOLUME 8.8 fl (7.4-10.4); MONO % 6.8 % (0-9); PLATELET COUNT 304 K/uL (130-400); RED BLOOD COUNT 4.01 M/uL (3.80-5.40); RED CELL DISTRIBUTION WIDTH 13.3 % (11.5-14.5); WHITE BLOOD COUNT W/O DIFF 6.1 K/uL (4.2-12.2)
[2017-04-20 16:04] LABS: LACTIC ACID 1.3 mmol/L (0.7-2.1)
[2017-04-20 16:07] LABS: BLOOD UREA NITROGEN 5 mg/dL (7-17); CREATININE 0.5 mg/dL (0.52-1.04); EST GLOMERULAR FILTRATION RATE > 60 ml/min; GLUCOSE,RANDOM 109 mg/dL (70-110)
[2017-04-20 16:08] LABS: ALBUMIN 4.5 gm/dL (3.5-5.0); ALKALINE PHOSPHATASE 81 U/L (38-126); ALT/SGPT 37 U/L (9-52); AST/SGOT 26 U/L (14-36); TOTAL PROTEIN 7.4 gm/dL (6.3-8.2)
[2017-04-20 16:09] LABS: AMYLASE 51 U/L (30-110); LIPASE 30 U/L (23-300)
[2017-04-20] MEDS ORDERED: POTASSIUM CHLORIDE 20 MEQ TABLET PO ONE (16:10)
[2017-04-20] MEDS ORDERED: ONDANSETRON HCL IV 4 MG/2 ML VIAL IVP PRN (16:23)
[2017-04-20] MEDS ORDERED: PROMETHAZINE HCL 25 MG/ML VIAL IVP PRN (16:24)
[2017-04-20] MEDS: PANTOPRAZOLE SODIUM IV 40 MG VIAL IV SCH (19:17)
[2017-04-20] MEDS: POTASSIUM CHLORIDE/D5-0.9%NACL 20 MEQ/1,000 ML BAG IV SCH (19:18)
[2017-04-20] MEDS: DICYCLOMINE HCL 10 MG CAPSULE PO SCH ×2 (19:21→22:07)
[2017-04-20] MEDS: SUCRALFATE 1 G/10 ML UD PO SCH (21:57)
[2017-04-20] MEDS ORDERED: CLIDINIUM PO SCH (22:00)
[2017-04-20] MEDS ORDERED: CHLORDIAZEPOXIDE PO SCH (22:00)
[2017-04-20] MEDS ORDERED: FLUOXETINE HCL 20 MG CAPSULE PO SCH (22:00)
[2017-04-21] MEDS: POTASSIUM CHLORIDE/D5-0.9%NACL 20 MEQ/1,000 ML BAG IV SCH (03:01)
[2017-04-21] MEDS: DICYCLOMINE HCL 10 MG CAPSULE PO SCH ×2 (06:20→14:00)
[2017-04-21 06:24] LABS: HEMATOCRIT 36.1 % (35.0-47.0); HEMOGLOBIN 11.8 gm/dl (11.6-16.0); MEAN CELL VOLUME 99.4 fl (81-97); MEAN CORPUSCULAR HEMOGLOBIN 32.5 pg (27-33); MEAN CORPUSCULAR HGB CONC 32.7 g/dl (32-36); MEAN PLATELET VOLUME 8.8 fl (7.4-10.4); PLATELET COUNT 285 K/uL (130-400); RED BLOOD COUNT 3.63 M/uL (3.80-5.40); RED CELL DISTRIBUTION WIDTH 13.3 % (11.5-14.5); WHITE BLOOD COUNT W/O DIFF 5.2 K/uL (4.2-12.2)
[2017-04-21 06:36] LABS: ALB/GLOB RATIO 1.4 (1.1-1.8); ALBUMIN 3.5 gm/dL (3.5-5.0); ALKALINE PHOSPHATASE 58 U/L (38-126); ALT/SGPT 36 U/L (9-52); ANION GAP 6.6 (7-16); AST/SGOT 19 U/L (14-36); BILIRUBIN,TOTAL 0.73 mg/dL (0.2-1.3); BLOOD UREA NITROGEN 6 mg/dL (7-17); CARBON DIOXIDE 26.4 mmol/L (22-30); CREATININE 0.5 mg/dL (0.52-1.04); EST GLOMERULAR FILTRATION RATE > 60 ml/min; GLUCOSE,RANDOM 116 mg/dL (70-110)
[2017-04-21] MEDS: HYDROMORPHONE HCL 1 MG/ML CPJ IVP PRN ×2 (06:54→09:19)
[2017-04-21 09:08] LABS: LACTIC ACID 0.9 mmol/L (0.7-2.1)
[2017-04-21] MEDS ORDERED: LORAZEPAM 2 MG/ML VIAL IV ONE (09:10)
[2017-04-21] MEDS ORDERED: HYDROMORPHONE HCL 1MG/ML **SYRINGE IVP ONE (09:10)
[2017-04-21 09:47] LABS: FERRITIN 72.5 ng/mL (11.1-264)
[2017-04-21] MEDS ORDERED: TRAMADOL HCL 50 MG TABLET PO SCH (10:00)
[2017-04-21] MEDS: SUCRALFATE 1 G/10 ML UD PO SCH ×2 (14:01)
[2017-04-21] MEDS: PANTOPRAZOLE SODIUM IV 40 MG VIAL IV SCH (14:03)
[2017-04-21] MEDS ORDERED: POTASSIUM CHLORIDE 20 MEQ TABLET PO ONE (14:42)
--- NOTE | 2017-04-21 15:23 | Discharge Note ---
VTE H&P Assessment - Risk for VTE Risk for VTE: Yes Risk Level: Very Low Risk Assessment Date: 04/21/17 Risk Assessment Time: 15:19 VTE Orders Placed or Will Be Placed: No VTE Reason for No Prophylaxis: Not Indicated (not in the hospital long enough) Discharge Medications - Discharge Medications Home Medications: Ambulatory Orders Chlordiazepoxide/Clidinium Br [Librax Capsule] 1 each PO DAILY 08/03/15 [Last Taken 04/02/17] Fluoxetine HCl 20 mg PO QHS 08/03/15 [Last Taken 04/02/17] Pravastatin Sodium 40 mg PO QHS 08/03/15 [Last Taken 04/02/17] Aspirin 81 mg PO QD tab.chew 08/28/15 [Last Taken 04/02/17] Multivitamin [Daily Multiple Vitamin] 1 each PO DAILY tab 08/28/15 [Last Taken 04/02/17] Omeprazole 20 mg PO DAILY #30 cap. 01/20/16 [Last Taken 04/02/17] Sucralfate [Carafate] 1 gm PO QID #28 tablet 04/03/17 [Last Taken Unknown] Dicyclomine HCl [Bentyl] 20 mg PO Q8H #30 cap 04/19/17 [Last Taken Unknown] Hydrocodone/Acetaminophen [[place] 5-325 Tablet] 1 each PO Q6HR #14 tablet [Last Taken Unknown] Prochlorperazine Maleate [Compazine] 10 mg PO DAILY 04/19/17 [Last Taken Unknown ] Prochlorperazine [Compazine] 25 mg RC Q8HR PRN #10 supp.rect 04/19/17 [Last Taken Unknown] Tramadol HCl 50 mg PO DAILY 04/19/17 [Last Taken Unknown] Discharge Note - Date Date of Discharge Note: 04/21/17 Disposition: Home, Self-Care Condition: (2) Stable Additional Instructions: Follow up with Dr Gallagher June 08 7:30am at [facility] follow up with Alfie as scheduled next week clear liquids and advance diet as tolerated Referrals: KILEY BLANCHARD [Primary Care Provider] - Forms: Patient Portal Access Activity at Discharge: Increase Activity as Tolerated
--- NOTE | 2017-04-22 00:34 | History and Physical Report ---
DATE OF ADMISSION: 04/20/17 CHIEF COMPLAINT: ABDOMINAL PAIN. HISTORY OF PRESENT ILLNESS: This 52-year-old female presented to the Emergency Department with abdominal pain. She was in the Endoscopy Suite the day of admission with Dr. Gallagher and she had severe abdominal pain. He sent her to the E.R. for pain control and Dr. Howard saw the patient and admitted her to the hospital for observation. She had the colonoscopy and Dr. Gallagher said it looked good. He didnt see anything abnormal on it. She has had a history of spasmodic abdominal pain over the past two weeks with multiple E.R. visits. Dilaudid and Ativan seemed to work. The patient was asking for Dilaudid in the GI Clinic. Since they dont provide that medication, she requested to come to the E.R. for pain control. The patient has a negative abdominal CT yesterday while in the E.R., which was without contrast, and she was given Dilaudid and Ativan and it settled down and was admitted to the hospital for observation. PAST MEDICAL HISTORY: Abdominal pain. Irritable bowel syndrome. GERD. Gout. Hypercholesterolemia. PAST SURGICAL HISTORY: Tubal ligation. T&A. Foot surgery. EGD on 02/21/2016. Colonoscopy 04/20/[address] Gallagher yesterday, which was essentially negative. No biopsies obtained. SOCIAL HISTORY: She smokes one pack per day of cigarettes. Occasional marijuana use. MEDICATIONS ON ADMISSION: She is on: Fluoxetine 20 mg a day Tramadol 50 mg every eight hours prn Carafate 1 gm q.i.d. after meals and at bedtime Compazine 10 mg every six hours prn orally or, if she cant take it because of vomiting, she should the 25 mg rectal suppositories every eight hours prn. Pravastatin 40 mg at h.s. Omeprazole 20 mg daily Multivitamins one a day [place] 5 mg one every six hours. She has nine pills left. Bentyl 20 mg every eight hours She is also on Librax/Clidinium one pill at h.s. Aspirin 81 mg daily ALLERGIES: AMOXICILLIN CLAVULANATE (AUGMENTIN). POTASSIUM. TETRACYCLINE. FAMILY/PSYCHOSOCIAL HISTORY: Unremarkable. She is having some stress issues because of adult stepson moved back in the house, who has an addiction problem with heroin and was in rehab but now is back using heroin and not going to AA. REVIEW OF SYSTEMS: HEENT: No upper respiratory infection symptoms, cough, cold , or congestion. CARDIOVASCULAR: No chest pain, palpitations, or arrhythmias. RESPIRATORY: No cough, cold, or congestion. GASTROINTESTINAL: She did have abdominal pain but she is doing much better at this time. Soft abdomen. No rebound or rigidity. She had some vomiting this morning but none since the CTA or this morning. GENITOURINARY: No dysuria, hematuria, frequency, or burning on urination. MUSKULOSKELETAL: Moving all four joint. No arthritis. No problems moving her arms and legs. NEUROLOGIC: No CVA, paralysis, or paresthesias. 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 No lumps in her breasts or abnormal vaginal bleeding. ENDOCRINE: No diabetes or thyroid disease. INTEGUMENT: No rash , ulcer, changes in moles, or yellow skin. PHYSICAL EXAMINATION: GENERAL: Height is 510. Weight is 199 lb. VITAL SIGNS: Temperature is 98.3. Pulse is 67. Blood pressure 126/78. Respiratory rate is 16. Pulse ox on room air is 98%. HEENT: Pupils equal, round, and reactive to light an accommodation. Extraocular muscles are intact. Throat is clear. Noses is clear. Tympanic membranes are anguiano. NECK: Supple, no jugular venous distention. No hepatojugular reflux. No carotid bruits. Thyroid smooth. CARDIOVASCULAR: Regular rate and rhythm without murmurs, clicks, rubs, or gallops. RESPIRATORY: Clear to auscultation and percussion. ABDOMEN: Soft, nontender. No hepatosplenomegaly. No masses. No tenderness. Bowel sounds are active. There is no rebound or rigidity. EXTREMITIES: No pitting edema. No cyanosis. No clubbing. Full range of motion. Peripheral pulses are good. BREASTS, GYNECOLOGICAL, AND RECTAL: Exam deferred. NEUROLOGICAL EXAM: Cranial nerves II through XII are intact. No gross defects. Sensation normal. Strength normal. Deep tendon reflexes are equal bilaterally. Babinski is negative. MENTAL STATUS: Alert and oriented x3. IMPRESSION: 1. ABDOMINAL PAIN. 2. IBS. 3. SPASMODIC ABDOMINAL PAIN. PLAN: IV fluids. Reviewed what Dr. Gallagher did. He ordered a CTA of the abdomen with contrast to rule out any ischemia to the bowels. He also ordered out tests , which some of them are being done currently and some are send outs. The tests that he ordered are an SINTIA, C Esterase inhibitor level. Sed-rate. Ferritin. Lactate acid level. Fasting cortisol. Urine porphyrins. She has a follow-up appointment with Dr. Gallagher on May. The patient is to be followed up also by Dr. Mcneil next week. JOB NUMBER: [id number]
--- NOTE | 2017-04-22 16:34 | CT ANGIOGRAM REPORT ---
EXAM: CT SCAN ABDOMEN/PELVIS W CONTRAST HISTORY: ABDOMINAL PAIN, PARTICULARLY THE LEFT SIDE OF THE ABDOMEN. TECHNIQUE: CTA of the abdomen and pelvis performed following the intravenous administration of 95 mL of Omnipaque-350 as the IV contrast. Oral contrast was also utilized. Postprocessing on an independent workstation was performed with multiple 3D MIP and 3D volume-rendered series. COMPARISON: Noncontrast CT abdomen and pelvis performed two days earlier on 11/04. FINDINGS: No gallstones identified within the gallbladder. No definite hepatic , splenic, adrenal, or pancreatic mass evident. Horseshoe kidney again noted, as described on 04/19/17 CT. No renal mass identified. No hydronephrosis seen on either side. No free intraperitoneal air or free intraperitoneal fluid identified. Very small periumbilical anterior abdominal wall hernia, as before containing adipose tissue but no bowel. Abdominal aorta appears of normal caliber on the CTA postprocessing with no aneurysm evident. No dissection is seen. The celiac axis, SMA, and renal arteries all appear widely patent. YARA is also patent. There are accessory renal arteries bilaterally as well, one on each side, which are also patent. IMPRESSION: 1. HORSESHOE KIDNEY. 2. SMALL PERIUMBILICAL ANTERIOR ABDOMINAL WALL HERNIA CONTAINING ADIPOSE TISSUE BUT NO BOWEL. 3. NO ABDOMINAL AORTIC ANEURYSM OR DISSECTION EVIDENT. JOB NUMBER: [id number] [facility]
--- NOTE | 2017-04-24 12:21 | Discharge Summary ---
DATE OF DISCHARGE: 04/21/2017 DISCHARGE DIAGNOSES: 1. Abdominal pain. 2. Irritable bowel syndrome. 3. GERD. 4. Hypercholesterolemia. 5. History of gout. 6. History of hypercholesterolemia. 7. History of anxiety. ATTENDING PHYSICIAN: Maksim Oconnor DO REASON FOR HOSPITALIZATION: Abdominal pain. This 52-year-old female was in colonoscopy having severe abdominal pain. The endoscopy suite was not able to provide her with Dilaudid, so she requested to go to the ER for pain control and Dilaudid. Dr. Howard evaluated the patient and gave her Dilaudid and Ativan and admitted her to the hospital for observation because she was too uncomfortable to send home. She was also vomiting. SIGNIFICANT FINDINGS FROM EXAMINATION: A CTA was done which was essentially negative. The arteries to the intestines were patent. Laboratory was done. WBC was 5200, hemoglobin 11.8, potassium 3.2. We gave her another 40 of potassium orally prior to discharge and advised her to eat high-potassium foods. BUN 6, creatinine 0.6. The hepatic function tests were negative. Total protein 6.0, slightly low. Lipase was normal at 30, amylase was 51. There are tests that are pending that are all send-outs and will not be back. These can be followed through Dr. Gallagher or Dr. Mcneil. The tests that were ordered by Dr. Gallagher were SINTIA, C esterase inhibitor levels, sed rate, ferritin, lactic acid level, fasting cortisol, urine porphyrins - which is a 24-hour urine collection. She will be given the urine collection system once she leaves. THERAPY PROVIDED: She was given this morning Dilaudid 1 mg, Ativan 1 mg. She has not had any more pain medication since then. We will continue on with the Bentyl, Carafate, and her home medications. She is feeling much better. Diet has been advanced to clear liquids. She is going to be discharged to follow up with Dr. Mcneil next week, Dr. Gallagher on 06/08/2017. CONDITION ON DISCHARGE: Much improved. DISCHARGE INSTRUCTIONS: Follow up with Dr. Gallagher on 06/08/2017. Follow up with Dr. Mcneil next week as scheduled. Continue her home medications of fluoxetine 20 mg at h.s., tramadol 50 q.8 h. p.r.n., Carafate 1 g after meals and at bedtime, Compazine either orally 10 mg q.6 h. or Compazine rectal suppository q.8 h. p.r.n., pravastatin 40 mg q.h.s., omeprazole 20 mg daily, multiple vitamins 1 a day, [place] 5 mg 1 q.6 h. p.r.n. and she has 9 tablets left, Bentyl 20 mg q.8 h., and Librax 1 at bedtime. CC: KILEY MCNEIL D.O. Dr. Aileen ALCALA
== END 2017-04-21 16:00 | disposition home or self-care (01) ==
LOC: ER 15:16 → MEDSURG 17:13
PROVIDERS: ADMIT Family Medicine; ATTEND Emergency Medicine
DX: G89.18 Other acute postprocedural pain (principal); K58.9 Irritable bowel syndrome, unspecified; K21.9 Gastro-esophageal reflux disease without esophagitis; E78.2 Mixed hyperlipidemia; E78.00 Pure hypercholesterolemia, unspecified; M10.9 Gout, unspecified; F41.9 Anxiety disorder, unspecified; R11.2 Nausea with vomiting, unspecified
CPT/HCPCS: 74177; 80048; 80053; 80076; 82150; 82728; 83605; 83690; 85025; 85027; 85651; 86038; 86161; 96374; 96375; 99220; 99285; C9113; J1170; J2405; J2550; J3480

== ENCOUNTER 2017-04-24 11:28 | Emergency (ER) | payer MEDICAID, BC ==
--- NOTE | 2017-04-24 11:39 | Emergency Department Record ---
History of Present Illness - General Chief Complaint: Abdominal Pain Stated Complaint: ABDOMINAL PAIN/VOMITING Time Seen by Provider: 04/24/17 11:30 Source: Patient, Family Mode of Arrival: Ambulatory Limitations: No limitations - History of Present Illness Initial Comments: 52 yo female presents to the ER with nausea and vomiting with abdominal cramps. She has had five ED visits in the last one month with similar symptoms. She had CT scans on 04/03, 04/19 and 04/21 that were all negative. She had a lower scope that was negative. No fever or blood in the vomit. She nausea and cramps returned yesterday. She has had these episodes many times in the past without clear diagnosis being made including recent significant work ups. She has concerns now that this could be cannabis hyperemesis syndrome. She last smoked marijuana yesterday. No blood in emesis or diarrhea. MD Complaint: Abdominal pain, Other (nausea and vomiting) Onset/Timin -: Awoke with symptoms Location: LLQ, RLQ Severity: Moderate Quality: Aching, Burning, Cramping Consistency: Constant Improves With: Nothing Worsens With: Nothing Associated Symptoms: Anorexia - Related Data Home Medications Medication Instructions Recorded Confirmed Last Taken Chlordiazepoxide/Clidinium Br 1 each PO DAILY 08/03/15 04/24/17 1 Day Ago [Librax Capsule] ~04/23/17 Fluoxetine HCl 20 mg PO QHS 08/03/15 04/24/17 1 Day Ago ~04/23/17 Pravastatin Sodium 40 mg PO QHS 08/03/15 04/24/17 1 Day Ago ~04/23/17 Aspirin 81 mg PO QD tab.chew 08/28/15 04/24/17 1 Day Ago ~04/23/17 Multivitamin [Daily Multiple 1 each PO DAILY tab 08/28/15 04/24/17 1 Day Ago Vitamin] ~04/23/17 Prochlorperazine Maleate 10 mg PO DAILY 04/19/17 04/24/17 1 Day Ago [Compazine] ~04/23/17 Tramadol HCl 50 mg PO DAILY 04/19/17 04/24/17 1 Day Ago ~04/23/17 Previous Rx's Medication Instructions Recorded Omeprazole 20 mg PO DAILY #30 01/20/16 Sucralfate [Carafate] 1 gm PO QID #28 tablet 04/03/17 Dicyclomine HCl [Bentyl] 20 mg PO Q8H #30 cap 04/19/17 Hydrocodone/Acetaminophen [[place] 1 each PO Q6HR #14 tablet 04/19/17 5-325 Tablet] Prochlorperazine [Compazine] 25 mg RC Q8HR PRN #10 supp.rect 04/19/17 Ondansetron [Zofran Odt] 4 mg PO Q8H #20 tab.rapdis 04/24/17 Allergies Allergy/AdvReac Type Severity Reaction Status Date / Time amoxicillin trihydrate Allergy Intermediate NAUSEA AND Verified 04/24/17 11:36 [From Augmentin] VOMITING potassium clavulanate Allergy Intermediate NAUSEA AND Verified 04/24/17 11:36 [From Augmentin] VOMITING tetracycline Allergy Intermediate SWELLING Verified 04/24/17 11:36 (GENERAL) Travel Screening - Travel/Exposure Within Last 30 Days Have you traveled within the last 30 days?: No - Travel/Exposure Within Last Year Have you traveled outside the [place] in the last year?: No - Additonal Travel Details Have you been exposed to anyone with a communicable illness?: No - Travel Symptoms Symptom Screening: None Review of Systems Constitutional: Denies: Chills, Fever, Malaise, Weakness Eyes: Denies: Eye discharge ENT: Denies: Congestion, Throat pain Respiratory: Denies: Cough, Dyspnea Cardiovascular: Denies: Chest pain, Syncope Endocrine: Denies: Fatigue Gastrointestinal: Reports: Abdominal pain (cramps), Nausea, Vomiting. Denies: Diarrhea Genitourinary: Denies: Dysuria, Urgency Musculoskeletal: Denies: Arthralgia, Back pain, Neck pain Skin: Denies: Bruising, Change in color, Rash Neurological: Denies: Headache, Numbness, Vertigo, Weakness Psychiatric: Reports: Anxiety Hematological/Lymphatic: Denies: Blood Clots, Easy bleeding, Easy bruising, Swollen glands Past Medical History - SOCIAL HISTORY Smoking Status: Current every day smoker Alcohol Use: None Drug Use: None - RESPIRATORY Hx Respiratory Disorders: No Comment:: 1 ppd smaoker - CARDIOVASCULAR Hx Cardio Disorders: Yes Comment:: high cholesterol - NEURO Hx Neuro Disorders: Yes Hx TIA: Yes - GI Hx GI Disorders: Yes Hx Abdominal Pain: Yes Hx Reflux: Yes Hx Nausea/Vomiting: Yes - Hx Genitourinary Disorders: No Hx Kidney Stones: Yes - ENDOCRINE Hx Endocrine Disorders: No - MUSCULOSKELETAL Hx Musculoskeletal Disorders: Yes Hx Gout: Yes - PSYCH Hx Psych Problems: Yes Hx Depression: Yes - HEMATOLOGY/ONCOLOGY Hx Hematology/Oncology Disorders: No Family Medical History Any Significant Family History?: Yes Hx Cancer: Father, Brother/Sister Hx Diabetes: Mother Hx HTN: Mother Physical Exam - General General Appearance: Alert, Oriented x3, Cooperative, No acute distress Limitations: No limitations - Head Head exam: Normal inspection - Eye Eye exam: Normal appearance, PERRL. negative: Conjunctival injection, Periorbital swelling - ENT ENT exam: Normal exam Ear exam: Normal external inspection Nasal Exam: Normal inspection Mouth exam: Normal external inspection - Neck Neck exam: Normal inspection, Full ROM. negative: Tenderness - Respiratory Respiratory exam: Normal lung sounds bilaterally. negative: Respiratory distress - Cardiovascular Cardiovascular Exam: Regular rate, Normal rhythm, Normal heart sounds - GI/Abdominal GI/Abdominal exam: Soft, Tenderness (mild non focal, abdomen is very soft). negative: Distended, Guarding - Rectal Rectal exam: Deferred - exam: Deferred - Extremities Extremities exam: Normal inspection, Full ROM, Normal capillary refill. negative: Tenderness - Back Back exam: Reports: Normal inspection, Full ROM. Denies: Muscle spasm, Rash noted, Tenderness - Neurological Neurological exam: Alert, Normal gait, Oriented X3 - Psychiatric Psychiatric exam: Anxious - Skin Skin exam: Dry, Intact, Normal color, Warm Course Vital Signs 04/24/17 11:31 Temperature 98.0 F Pulse Rate 69 Respiratory 18 Rate Blood Pressure 183/91 Pulse Ox 99 - Reevaluation(s) Reevaluation #1: EMR reviewed including recent labs (Stabel recent CBC, no renal insufficiency, normal lipase), [address] Aileen cates report. Reports of resolution of the symptoms with Phenergan and Dilaudid. She reports she has not filled her prescription for Compazine. Her will fill it. 04/24/17 11:59 Reevaluation #2: I reviewed the recent case with Dr Oconnor who had admitted the patient We reviewed the CT's, and GI consult. 04/24/17 12:45 Reevaluation #3: No acute changes on the labs of the CBC or CMP 04/24/17 13:42 04/24/17 13:49 The nausea is well controlled The labs were reviewed with the patient 04/24/17 14:01 A message was left with Dr Mcneil to be called back to discuss the case. I offered transfer for the patient given her symptoms She requests to follow up with PCP tomorrow as scheduled given there are no acute changes in symptoms Reevaluation #4: I dd speak with Dr Mcneil. We discussed today's ED visit and his follow up tomorrow am 04/24/17 17:27 Medical Decision Making - Lab Data Result diagrams: 04/24/17 13:00 04/24/17 13:00 Disposition Disposition: Discharge Clinical Impression: Nausea & vomiting Qualifiers: Vomiting type: unspecified Vomiting Intractability: unspecified Qualified Code( s): R11.2 - Nausea with vomiting, unspecified Abdominal pain Qualifiers: Abdominal location: generalized Qualified Code(s): R10.84 - Generalized abdominal pain Disposition: Home, Self-Care Condition: (1) Good Instructions: Acute Nausea and Vomiting (ED), Abdominal Pain (ED) Additional Instructions: Follow up tomorrow with Dr Mcneil as scheduled Prescriptions: Ondansetron [Zofran Odt] 4 mg PO Q8H #20 tab.rapdis Forms: Patient Portal Access Time of Disposition: 14:03 Quality - Quality Measures Quality Measures: N/A - Blood Pressure Screening View Details: Yes Blood Pressure Classification: Hypertensive Reading Systolic Measurement: 183 Diastolic Measurement: 91 Screening for High Blood Pressure: < First Hypertensive BP, F/U Documented > [ G8950] First Hypertensive Follow-up Interventions: Referral to alternative/primary care provider.
[2017-04-24] MEDS ORDERED: 0.9 % SODIUM CHLORIDE 1,000 ML BAG IV ONE ×2 (11:46→12:41)
[2017-04-24] MEDS ORDERED: PROMETHAZINE HCL 25 MG/ML VIAL IM ONE (11:52)
[2017-04-24] MEDS ORDERED: HYDROMORPHONE HCL 1MG/ML **SYRINGE IM ONE (11:52)
[2017-04-24] MEDS ORDERED: PANTOPRAZOLE SODIUM IV 40 MG VIAL IVP ONE (12:41)
[2017-04-24] MEDS ORDERED: LORAZEPAM 2 MG/ML VIAL IV ONE (12:42)
[2017-04-24 13:10] LABS: HEMATOCRIT 40.9 % (35.0-47.0); HEMOGLOBIN 13.7 gm/dl (11.6-16.0); MEAN CELL VOLUME 98.1 fl (81-97); MEAN CORPUSCULAR HEMOGLOBIN 32.9 pg (27-33); MEAN CORPUSCULAR HGB CONC 33.5 g/dl (32-36); MEAN PLATELET VOLUME 8.9 fl (7.4-10.4); PLATELET COUNT 322 K/uL (130-400); RED BLOOD COUNT 4.17 M/uL (3.80-5.40); RED CELL DISTRIBUTION WIDTH 13.2 % (11.5-14.5); WHITE BLOOD COUNT W/O DIFF 7.8 K/uL (4.2-12.2)
[2017-04-24 13:22] LABS: PLATELET ESTIMATE NORMAL (NORMAL)
[2017-04-24 13:25] LABS: ALBUMIN 4.8 gm/dL (3.5-5.0); ANION GAP 10.7 (7-16); BLOOD UREA NITROGEN 7 mg/dL (7-17); CARBON DIOXIDE 26.3 mmol/L (22-30); CREATININE 0.6 mg/dL (0.52-1.04); EST GLOMERULAR FILTRATION RATE > 60 ml/min; GLUCOSE,RANDOM 126 mg/dL (70-110); TOTAL PROTEIN 7.6 gm/dL (6.3-8.2)
[2017-04-24 13:26] LABS: ALKALINE PHOSPHATASE 82 U/L (38-126); ALT/SGPT 36 U/L (9-52); AST/SGOT 18 U/L (14-36); BILIRUBIN,TOTAL 0.87 mg/dL (0.2-1.3); LIPASE 22 U/L (23-300)
[2017-04-24] MEDS ORDERED: HYDROMORPHONE HCL 1MG/ML **SYRINGE IVP ONE (14:01)
== END 2017-04-24 14:51 | disposition home or self-care (01) ==
LOC: ER 11:28
DX: R10.84 Generalized abdominal pain (principal); R11.2 Nausea with vomiting, unspecified
CPT/HCPCS: 99284 ×2; 96374; 96372; 96375; 83690; 80076; 80048; 85027; J2060; J1170; C9113; J2550; J7030

== ENCOUNTER 2018-09-24 07:30 | Emergency (ER) | payer MEDICAID, BC ==
[2018-09-24] MEDS ORDERED: ONDANSETRON HCL IV 4 MG/2 ML VIAL IV ONE (07:39)
[2018-09-24] MEDS ORDERED: 0.9 % SODIUM CHLORIDE 1,000 ML BAG IV ONE (07:39)
--- NOTE | 2018-09-24 07:45 | Emergency Department Record ---
History of Present Illness - General Chief complaint: Vomiting Stated complaint: VOMITING,CP,ISAEL Time Seen by Provider: 09/24/18 07:39 Source: Patient Mode of Arrival: Ambulatory Limitations: No limitations - History of Present Illness Initial comments: The patient is here due to a 5 day hx of frequent nausea and vomiting. She also has developed upper Ap since the vomiting began and now has L sided CP and mild SOB during the vomiting episodes. She has a hx of marijuana hyperemesis syndrome and has had this issue many times in the past. It resolved when she quit smoking marijuana in the past. Unfortunately she began smoking again a week ago and now her vomiting is back. MD complaint: Abdominal pain, Nausea, Vomiting Onset/Timin -: Days(s) Radiation: Epigastric Severity: Moderate Improves with: None Worsens with: None Associated Symptoms: Denies other symptoms - Related Data Previous Rx's Medication Instructions Recorded Ondansetron [Zofran Odt] 4 mg SL .Q4-6H PRN #12 tab.rapdis 09/24/18 Allergies Allergy/AdvReac Type Severity Reaction Status Date / Time amoxicillin trihydrate Allergy Intermediate NAUSEA AND Verified 09/24/18 07:39 [From Augmentin] VOMITING potassium clavulanate Allergy Intermediate NAUSEA AND Verified 09/24/18 07:39 [From Augmentin] VOMITING tetracycline Allergy Intermediate SWELLING Verified 09/24/18 07:39 (GENERAL) Travel Screening - Travel/Exposure Within Last 30 Days Have you traveled within the last 30 days?: No - Travel/Exposure Within Last Year Have you traveled outside the [place] in the last year?: No - Additonal Travel Details Have you been exposed to anyone with a communicable illness?: No - Travel Symptoms Symptom Screening: None Review of Systems Constitutional: Denies: Chills, Fever Eyes: Denies: Eye discharge ENT: Denies: Congestion Respiratory: Denies: Cough, Dyspnea Cardiovascular: Reports: Chest pain (with vomiting.) Endocrine: Denies: Fatigue Gastrointestinal: Reports: Abdominal pain, Nausea, Vomiting. Denies: Diarrhea Genitourinary: Denies: Dysuria Musculoskeletal: Denies: Arthralgia Past Medical History - SOCIAL HISTORY Smoking Status: Current every day smoker Alcohol Use: None Drug Use: None - RESPIRATORY Hx Respiratory Disorders: No Comment:: 1 ppd smaoker - CARDIOVASCULAR Hx Cardio Disorders: Yes Comment:: high cholesterol - NEURO Hx Neuro Disorders: Yes Hx TIA: Yes - GI Hx GI Disorders: Yes Hx Abdominal Pain: Yes Hx Reflux: Yes Hx Nausea/Vomiting: Yes - Hx Genitourinary Disorders: No Hx Kidney Stones: Yes - ENDOCRINE Hx Endocrine Disorders: No - MUSCULOSKELETAL Hx Musculoskeletal Disorders: Yes Hx Gout: Yes - PSYCH Hx Psych Problems: Yes Hx Depression: Yes - HEMATOLOGY/ONCOLOGY Hx Hematology/Oncology Disorders: No Family Medical History Any Significant Family History?: Yes Hx Cancer: Father, Brother/Sister Hx Diabetes: Mother Hx HTN: Mother Physical Exam - General General Appearance: Alert, Oriented x3, Cooperative, Mild distress (due to vomiting.) - Head Head exam: Atraumatic, Normocephalic - Eye Eye exam: Normal appearance, PERRL, EOMI - ENT Throat exam: Normal inspection. negative: Tonsillar erythema, Tonsillar exudate - Neck Neck exam: Normal inspection, Full ROM. negative: Tenderness - Respiratory Respiratory exam: Normal lung sounds bilaterally, Chest wall tenderness (The L sided CP is 100% reproducible to palpation of the L upper CW.). negative: Respiratory distress - Cardiovascular Cardiovascular Exam: Regular rate, Normal rhythm, Normal heart sounds - GI/Abdominal GI/Abdominal exam: Soft, Normal bowel sounds, Tenderness (There is mild epigastric tenderness to palpation.). negative: Guarding, Rebound, Rigid - Extremities Extremities exam: Normal inspection, Full ROM, Normal capillary refill. negative: Tenderness - Neurological Neurological exam: Alert. negative: Motor sensory deficit Course Vital Signs 09/24/18 07:34 Temperature 97.9 F Pulse Rate 102 H Respiratory 18 Rate Blood Pressure 138/99 Pulse Ox 100 - Reevaluation(s) Reevaluation #1: The patient is doing a little better at this time but is still intermittently vomiting. 09/24/18 08:47 Reevaluation #2: The patient is doing better at this time. Her nausea and vomiting are improved but she is still having the upper AP. The pain is typical for her multiple attacks of AP and vomiting which she gets from the marijuana. 09/24/18 09:12 Reevaluation #3: The patient is doing a lot better at this time. She is resting comfortably with no pain or discomfort. She is ready for home. 09/24/18 11:50 Medical Decision Making - Data Complexity MDM Data: Labs Ordered and/or Reviewed, X-Ray Ordered and/or Reviewed, EKG Ordered and/or Reviewed - Lab Data Result diagrams: 09/24/18 07:45 09/24/18 07:45 - EKG Data -: EKG Interpreted by Me EKG: No Acute Changes, Normal EKG - Radiology Data Radiology results: Report reviewed (CXR: Neg. Abd CT: Neg per Rad.) Disposition Disposition: Discharge Clinical Impression: Cyclical vomiting syndrome Qualifiers: Vomiting Intractability: non-intractable Nausea presence: with nausea Qualified Code(s): G43.A0 - Cyclical vomiting, not intractable Disposition: Home, Self-Care Condition: (2) Stable Instructions: Acute Nausea and Vomiting (ED) Additional Instructions: Please use the Zofran for nausea and do not smoke Marijuana ever again. Please see your family doctor for recheck tomorrow if not better and return to the ER for any worsening symptoms. Prescriptions: Ondansetron [Zofran Odt] 4 mg SL .Q4-6H PRN #12 tab.rapdis PRN Reason: Nausea Forms: Patient Portal Access Time of Disposition: 11:52 Quality - Quality Measures Quality Measures: N/A - Blood Pressure Screening View Details: Yes Does Patient Have Any of the Following: No Blood Pressure Classification: Hypertensive Reading Systolic Measurement: 138 Diastolic Measurement: 99 Screening for High Blood Pressure: < First Hypertensive BP, F/U Documented > [ G8950] First Hypertensive Follow-up Interventions: Referral to alternative/primary care provider.
[2018-09-24 07:54] LABS: BASO % 0.6 % (0-6); EOS % 2.4 % (0-6); GRAN % 57.3 % (47-80); HEMATOCRIT 46.3 % (35.0-47.0); HEMOGLOBIN 15.5 gm/dl (11.6-16.0); MEAN CELL VOLUME 95.7 fl (81-97); MEAN CORPUSCULAR HGB CONC 33.5 g/dl (32-36); MEAN PLATELET VOLUME 9.3 fl (7.4-10.4); MONO % 8.7 % (0-9); PLATELET COUNT 304 K/uL (130-400); RED BLOOD COUNT 4.84 M/uL (3.80-5.40); WHITE BLOOD COUNT W/O DIFF 8.8 K/uL (4.2-12.2)
[2018-09-24] MEDS ORDERED: PROMETHAZINE HCL 12.5 MG in 0.9 % SODIUM CHLORIDE 100ML 100 ML IVPB ONE (07:55)
[2018-09-24 08:07] LABS: BLOOD UREA NITROGEN 19 mg/dL (6-20); CREATININE 0.9 mg/dL (0.5-0.9); EST GLOMERULAR FILTRATION RATE > 60 mL/min; TOTAL PROTEIN 8.2 g/dL (6.6-8.7)
[2018-09-24 08:10] LABS: GLUCOSE,RANDOM 144 mg/dL (74-109)
[2018-09-24 08:12] LABS: ALBUMIN 4.7 g/dL (4.0-5.0); ALKALINE PHOSPHATASE 76 U/L (45-87); ALT/SGPT 15 U/L (<33); AST/SGOT 19 U/L (10.0-35.0); LIPASE 20 U/L (13-60)
[2018-09-24 08:14] LABS: BILIRUBIN,DIRECT < 0.2 mg/dL (0-0.3)
[2018-09-24] MEDS ORDERED: ACETAMINOPHEN 1,000 MG/100 ML BTL IVPB ONE (08:18)
[2018-09-24] MEDS ORDERED: KETOROLAC 30 MG/ML VIAL IVP ONE (09:11)
[2018-09-24] MEDS ORDERED: HYDROMORPHONE HCL 2 MG/ML VIAL IVP ONE ×2 (09:53→11:28)
--- NOTE | 2018-09-25 05:47 | RADIOLOGY REPORT ---
EXAM: CHEST, TWO VIEWS HISTORY: DIFFICULTY IN BREATHING. TECHNIQUE: Frontal and lateral views of the chest were performed. FINDINGS: The heart size is normal. The lung majano are clear. No infiltrate or pleural effusion. The osseous structures are normal. IMPRESSION: NEGATIVE CHEST EXAMINATION. JOB NUMBER: [id number] [facility]
--- NOTE | 2018-09-25 07:06 | CT SCAN REPORT ---
EXAM: CT OF THE ABDOMEN AND PELVIS WITHOUT CONTRAST HISTORY: NAUSEA AND VOMITING. TECHNIQUE: Sequential axial images were obtained from the diaphragms through the ischiorectal fossa without intravenous or oral contrast administration. FINDINGS: The visualized lung bases appear normal. The liver, gallbladder, pancreas and spleen appear normal. The adrenal glands and kidneys appear normal. 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 No obstructive uropathy. The small bowel appears normal. The appendix is visualized and appears normal. The colon appears normal. The uterus and adnexal structures are normal. The urinary bladder is normal. The osseous structures are grossly unremarkable. IMPRESSION: 1. NO ACUTE ABDOMINAL OR PELVIC DISEASE PROCESS. 2. HORSESHOE KIDNEY WHICH A NORMAL CONGENITAL VARIANT. NO OBSTRUCTIVE UROPATHY. JOB NUMBER: [id number] [facility]
== END 2018-09-24 12:04 | disposition home or self-care (01) ==
LOC: ER 07:30
DX: G43.A0 Cyclical vomiting, in migraine, not intractable (principal); T40.7X5A Adverse effect of cannabis (derivatives), initial encounter; R10.13 Epigastric pain; R11.2 Nausea with vomiting, unspecified; R06.00 Dyspnea, unspecified; R07.89 Other chest pain; F17.210 Nicotine dependence, cigarettes, uncomplicated
CPT/HCPCS: 99284 ×2; 96376; 96365; 96366; 96375; 96361; 96368; 83690; 85025; 80076; 80048; 84484; 71046; 74176; 93005; 93010; J1885; J2405; J1170; J2550; J7030

== ENCOUNTER 2019-05-08 20:17 | Emergency (ER) | payer OTHER, BC ==
[2019-05-08] MEDS ORDERED: HYDROMORPHONE HCL 2 MG/ML VIAL IVP ONE (20:31)
[2019-05-08] MEDS ORDERED: ONDANSETRON HCL IV 4 MG/2 ML VIAL IVP ONE (20:31)
--- NOTE | 2019-05-08 20:37 | Emergency Department Record ---
History of Present Illness - General Chief Complaint: Abdominal Pain Stated Complaint: GALL BLADDER ATTACK Time Seen by Provider: 05/08/19 20:20 Source: Patient Mode of Arrival: Ambulatory Limitations: No limitations - History of Present Illness Initial Comments: 54 yo female presents to ED for evaluation of diffuse abdominal pain after eating valdivia this morning, reports history of "gallbladder attacks" with similar symptoms previously. Patient denies health problems at her baseline, reports previous tubal ligation approximately 17 years ago. Patient denies fevers, chills, urinary symptoms, or change in stools. MD Complaint: Abdominal pain Onset/Timin -: Hour(s) Location: Diffuse, RUQ, RLQ Radiation: Back Severity scale (1-10): 10 Quality: Sharp, Stabbing Consistency: Constant Improves With: Nothing Worsens With: Nothing Context: Recent injury Associated Symptoms: Denies other symptoms, Chills - Related Data Patient : No Previous Rx's Medication Instructions Recorded Ondansetron [Zofran Odt] 4 mg PO Q8H PRN #15 tab.rapdis 05/08/19 Allergies Allergy/AdvReac Type Severity Reaction Status Date / Time amoxicillin trihydrate Allergy Intermediate NAUSEA AND Verified 05/08/19 20:31 [From Augmentin] VOMITING potassium clavulanate Allergy Intermediate NAUSEA AND Verified 05/08/19 20:31 [From Augmentin] VOMITING tetracycline Allergy Intermediate SWELLING Verified 05/08/19 20:31 (GENERAL) Travel Screening - Travel/Exposure Within Last 30 Days Have you traveled within the last 30 days?: Yes Location Detail:: [place] - Travel/Exposure Within Last Year Have you traveled outside the [place] in the last year?: No - Additonal Travel Details Have you been exposed to anyone with a communicable illness?: No - Travel Symptoms Symptom Screening: None Review of Systems Constitutional: Denies: Chills, Fever, Malaise, Night sweats Eyes: Denies: Eye discharge, Eye pain ENT: Denies: Congestion, Ear pain, Epistaxis Respiratory: Denies: Cough, Dyspnea Cardiovascular: Denies: Chest pain, Dyspnea on exertion Endocrine: Denies: Fatigue, Heat or cold intolerance Gastrointestinal: Reports: Abdominal pain, Nausea, Vomiting. Denies: Constipation Genitourinary: Denies: Incontinence, Retention Musculoskeletal: Denies: Arthralgia, Back pain Skin: Denies: Bruising, Change in color Neurological: Denies: Abnormal gait, Confusion, Headache, Seizure Psychiatric: Denies: Anxiety Hematological/Lymphatic: Denies: Anemia, Blood Clots Past Medical History - SOCIAL HISTORY Smoking Status: Current every day smoker Alcohol Use: Occasional Drug Use: Occasional Drug Use Detail:: Marijuana - RESPIRATORY Hx Respiratory Disorders: No Comment:: 1 ppd smaoker - CARDIOVASCULAR Hx Cardio Disorders: Yes Comment:: high cholesterol - NEURO Hx Neuro Disorders: Yes Hx TIA: Yes - GI Hx GI Disorders: Yes Hx Abdominal Pain: Yes Hx Reflux: Yes Hx Nausea/Vomiting: Yes - Hx Genitourinary Disorders: No Hx Kidney Stones: Yes - ENDOCRINE Hx Endocrine Disorders: No - MUSCULOSKELETAL Hx Musculoskeletal Disorders: Yes Hx Gout: Yes - PSYCH Hx Psych Problems: Yes Hx Depression: Yes - HEMATOLOGY/ONCOLOGY Hx Hematology/Oncology Disorders: No Family Medical History Any Significant Family History?: Yes Hx Cancer: Father, Brother/Sister Hx Diabetes: Mother Hx HTN: Mother Physical Exam - General General Appearance: Alert, Oriented x3, Cooperative, Moderate distress (Due to patient's pain symptoms) Limitations: No limitations - Head Head exam: Atraumatic, Normocephalic, Normal inspection Head exam detail: negative: Abrasion, Contusion, Jerez's sign, General tenderness, Hematoma, Laceration - Eye Eye exam: Normal appearance. negative: Conjunctival injection, Periorbital swelling, Periorbital tenderness, Scleral icterus - ENT Ear exam: negative: Auricular hematoma, Auricular trauma Nasal Exam: negative: Active bleeding, Discharge, Dried blood, Foreign body Mouth exam: negative: Drooling, Laceration, Muffled voice, Tongue elevation - Neck Neck exam: Normal inspection. negative: Meningismus, Tenderness - Respiratory Respiratory exam: Normal lung sounds bilaterally. negative: Rales, Respiratory distress, Rhonchi, Stridor - Cardiovascular Cardiovascular Exam: Regular rate, Normal rhythm, Normal heart sounds - GI/Abdominal GI/Abdominal exam: Soft, Tenderness (TTP RLQ, RUQ, no rebound/guarding pres ent.). negative: Rebound, Rigid - Rectal Rectal exam: Deferred - exam: Deferred - Extremities Extremities exam: Normal inspection. negative: Pedal edema, Tenderness - Back Back exam: Denies: CVA tenderness (R), CVA tenderness (L) - Neurological Neurological exam: Alert, Normal gait, Oriented X3 - Psychiatric Psychiatric exam: Normal affect, Normal mood - Skin Skin exam: Normal color. negative: Abrasion Type of lesion: negative: abrasion Course Vital Signs 05/08/19 20:23 Temperature 97.6 F Pulse Rate 64 Respiratory 24 Rate Blood Pressure 140/90 Pulse Ox 99 - Reevaluation(s) Reevaluation #1: 05/08/19 21:11 Laboratory studies were reviewed and appear grossly unremarkable for an acute process. Patient reports improvement in her symptoms on re-examination. Reevaluation #2: 05/08/19 22:28 CT Abdomen and Pelvis: No acute pathology identified Horseshoe kidneys Mild hepatic steatosis. Patient was updated on all results, reports that her pain symptoms have significantly improved, and patient appears stable for discharge at this time. Medical Decision Making - Lab Data Result diagrams: 05/08/19 20:38 05/08/19 20:38 Disposition Disposition: Discharge Clinical Impression: Abdominal pain Qualifiers: Abdominal location: generalized Qualified Code(s): R10.84 - Generalized abdominal pain Disposition: Home, Self-Care Condition: (2) Stable Instructions: Abdominal Pain (ED) Additional Instructions: Return to ED if your symptoms worsen or if you have any concerns. Zofran as directed. Follow-up with your family doctor in 3-5 days as directed. Prescriptions: Ondansetron [Zofran Odt] 4 mg PO Q8H PRN #15 tab.rapdis PRN Reason: Nausea/Vomiting Forms: Patient Portal Access Time of Disposition: 22:36 Quality - Quality Measures Quality Measures: N/A - Blood Pressure Screening Does Patient Have Any of the Following: No Blood Pressure Classification: Hypertensive Reading Systolic Measurement: 140 Diastolic Measurement: 90 Screening for High Blood Pressure: < First Hypertensive BP, F/U Documented > [G8950] First Hypertensive Follow-up Interventions: Referral to alternative/primary care provider.
[2019-05-08] MEDS ORDERED: 0.9 % SODIUM CHLORIDE 1000ML 1,000 ML IV SCH (20:45)
[2019-05-08 20:46] LABS: ABSOLUTE NEUTROPHIL COUNT 7.35; BASO % 0.2 % (0-6); HEMATOCRIT 38.6 % (35.0-47.0); HEMOGLOBIN 12.7 gm/dl (11.6-16.0); LYMPH % 10.1 % (16-45); MEAN CELL VOLUME 98.5 fl (81-97); MEAN CORPUSCULAR HEMOGLOBIN 32.4 pg (27-33); MEAN CORPUSCULAR HGB CONC 32.9 g/dl (32-36); MEAN PLATELET VOLUME 9.5 fl (7.4-10.4); MONO % 4.4 % (0-9); PLATELET COUNT 244 K/uL (130-400); RED BLOOD COUNT 3.92 M/uL (3.80-5.40); RED CELL DISTRIBUTION WIDTH 12.9 % (11.5-14.5); WHITE BLOOD COUNT W/O DIFF 8.6 K/uL (4.2-12.2)
[2019-05-08 20:54] LABS: BLOOD UREA NITROGEN 11 mg/dL (6-20); CREATININE 0.5 mg/dL (0.5-0.9); EST GLOMERULAR FILTRATION RATE > 60 mL/min
[2019-05-08 20:55] LABS: LIPASE 9 U/L (13-60); TOTAL PROTEIN 7.2 g/dL (6.6-8.7)
[2019-05-08 20:57] LABS: GLUCOSE,RANDOM 157 mg/dL (74-109)
[2019-05-08 21:00] LABS: ALB/GLOB RATIO 1.8 (1.1-1.8); ALBUMIN 4.6 g/dL (4.0-5.0); ALKALINE PHOSPHATASE 72 U/L (35-104); ALT/SGPT 14 U/L (<33); AST/SGOT 19 U/L (10.0-35.0)
[2019-05-08 21:05] LABS: PLATELET ESTIMATE NORMAL (NORMAL)
[2019-05-08] MEDS ORDERED: ONDANSETRON 4 MG ODT TABLET SL ONE (22:35)
--- NOTE | 2019-05-09 22:19 | CT SCAN REPORT ---
EXAM: CT SCAN ABDOMEN/PELVIS W CONTRAST HISTORY: ABDOMINAL PAIN. TECHNIQUE: CT of the abdomen and pelvis is performed following intravenous contrast administration. Type and amount of contrast are recorded in the medial record. COMPARISON: CT abdomen and pelvis 09/24/2018. FINDINGS: The lung bases are unremarkable. The liver and spleen are unremarkable. No pancreatic mass or inflammatory change. The bile ducts are not dilated. There are no calcified gallstones. No adrenal lesion seen. There is bilateral renal function. There is fusion of the inferior pole of the kidneys giving the kidneys a horseshoe-type appearance. There are no renal or ureteral calculi. No hydronephrosis. There is no aortic aneurysm. No periaortic mass or adenopathy. There are no dilated bowel loops. The appendix is unremarkable. There is no pelvic mass, abscess, or adenopathy. There is no free air or free fluid identified. No lytic or blastic bone lesion seen. IMPRESSION: 1. NO ACUTE ABDOMINAL OR PELVIC PROCESS SEEN. 2. HORSESHOE-TYPE KIDNEYS AGAIN IDENTIFIED, WHICH IS A DEVELOPMENTAL VARIATION. JOB NUMBER: [id number] [facility]
== END 2019-05-08 22:48 | disposition home or self-care (01) ==
LOC: ER 20:17
DX: R10.84 Generalized abdominal pain (principal); R11.2 Nausea with vomiting, unspecified; R19.7 Diarrhea, unspecified
CPT/HCPCS: 74177; 80053; 83690; 85027; 96361; 96374; 96375; 99284; J2405; J7030

== ENCOUNTER 2019-07-22 07:02 | Day surgery (SDC) | payer OTHER, BC ==
[~2019-07-22 07:02] MED LIST changes: +ACETAMINOPHEN 1,000 MG/100 ML BTL IVPB ONE; +FAMOTIDINE 20MG TABLET PO ONE; -KETOROLAC 30 MG/ML VIAL IVP ONE; -LIDOCAINE 2% MDV (20MG/ML) 20ML VIAL IV ONE; +MECLIZINE 25 MG TABLET PO ONE; +METOCLOPRAMIDE 10 MG TABLET PO ONE; -MIDAZOLAM HCL 2MG/2ML VIAL IV ONE; -ONDANSETRON HCL IV 4 MG/2 ML VIAL IVP ONE; -PROPOFOL 10 MG/ML VIAL IV ONE
[2019-07-22] MEDS ORDERED: FENTANYL PF 100MCG/2ML VIAL IV ONE (07:03)
[2019-07-22] MEDS ORDERED: KETOROLAC 30 MG/ML VIAL IVP ONE (07:03)
[2019-07-22] MEDS ORDERED: PROPOFOL 10 MG/ML VIAL IV ONE (07:03)
[2019-07-22] MEDS ORDERED: ESMOLOL HCL 100 MG/10 ML ML IVP ONE (07:03)
[2019-07-22] MEDS ORDERED: LIDOCAINE 2% MDV (20MG/ML) 20ML VIAL IV ONE (07:03)
[2019-07-22] MEDS ORDERED: DESFLURANE 240 ML BTL INH ONE (07:03)
[2019-07-22] MEDS ORDERED: ROCURONIUM BROMIDE 50MG/5ML VIAL IV ONE (07:03)
[2019-07-22] MEDS ORDERED: SUGAMMADEX SODIUM 200 MG/2 ML VIAL IV ONE (07:03)
[2019-07-22] MEDS ORDERED: SUCCINYLCHOLINE 20 MG/ML 10ML IVP ONE (07:03)
[2019-07-22] MEDS ORDERED: MIDAZOLAM HCL 2MG/2ML VIAL IV ONE (07:03)
[2019-07-22] MEDS ORDERED: ONDANSETRON HCL IV 4 MG/2 ML VIAL IVP ONE (07:03)
[2019-07-22] MEDS ORDERED: GLYCOPYRROLATE 0.2 MG/ML ML IV ONE (07:03)
[2019-07-22] MEDS ORDERED: DEXAMETHASONE 4 MG/ML 1ML VIAL IVP ONE (07:03)
[2019-07-22] MEDS ORDERED: RINGERS SOLUTION,LACTATED 1,000 ML IV ONE ×2 (07:15→09:06)
[2019-07-22] MEDS ORDERED: BUPIVACAINE 0.25% W/EPI MPF 30ML VIAL SQ ONE (09:00)
[2019-07-22] MEDS ORDERED: HYDROCODONE/APAP 5/325MG TABLET PO ONE (09:34)
--- NOTE | 2019-07-22 12:30 | Operative Note ---
DATE OF SURGERY: 07/22/2019 SURGEON: Ambrose Galo DO PREOPERATIVE DIAGNOSES: 1. Cholecystitis. 2. Incarcerated umbilical hernia. POSTOPERATIVE DIAGNOSES: 1. Cholecystitis. 2. Incarcerated umbilical hernia. OPERATION: 1. Laparoscopic cholecystectomy. 2. Open umbilical herniorrhaphy. PROCEDURE: The patient is a 54-year-old female who was brought to the operating room and placed in a supine position. General anesthesia was administered per the department of anesthesia. The patient's abdomen was prepped and draped in the usual sterile fashion. The area around the hernia was anesthetized with a total of 5 mL of 0.25% Sensorcaine with epinephrine. A 2 cm incision was made. This was carried down to the hernia sac. Clean circumferential fascial edges were obtained. The hernia sac was then amputated and passed off the field. Skylar clamps were placed on the edge of the hernia. Stay sutures of 0 Vicryl were placed. Through the hernia, a 10 mm blunt Bernie port was placed. Adequate pneumoperitoneum was established. Under direct visualization, additional 5 mm epigastric and two 5 mm right subcostal ports were placed. The patient was rotated into reverse Trendelenburg with rotation to left. The gallbladder was identified. It was covered with dense adhesions which were omen herson in nature. The gallbladder was retracted in a cephalad and lateral direction. The adhesions were taken down with the TARI Harmonic. Further cephalad and lateral retraction was applied to the gallbladder. The hepatocystic triangle was thoroughly dissected out. There was no aberrant anatomy, no posterior ductal structures. The cystic duct and cystic artery were clearly identified. Each one was doubly clipped and cut in a standard fashion. Gallbladder was then taken off the liver bed with TARI Harmonic. This was then extracted through the hernia. Right upper quadrant was rechecked and found to be hemostatic. No bleeding. No bile leaking. No bowel injury noted. The patient was leveled out. The pneumoperitoneum was released. All ports were removed. The hernia was then closed with 0 Vicryl in a [id number] fashion. The skin at all 4 ports was closed with 4-0 Vicryl. The patient was taken to the recovery room in stable condition. FINDINGS AT THE TIME OF SURGERY: Chronic cholecystitis and incarcerated umbilical hernia. MTDD
== END 2019-07-22 09:55 | disposition home or self-care (01) ==
LOC: SUR 07:02
PROVIDERS: ATTEND Surgery
DX: K81.1 Chronic cholecystitis (principal); K42.0 Umbilical hernia with obstruction, without gangrene; E78.00 Pure hypercholesterolemia, unspecified; Z86.73 Personal history of transient ischemic attack (TIA), and cerebral infarction without residual deficits; F17.210 Nicotine dependence, cigarettes, uncomplicated
CPT/HCPCS: 49587; 47562; 00790; J1885; J2405; J3010; J3490; J0330; J7120